=== PATIENT | male | born 1930 | race Caucasian/White ===

== ENCOUNTER → 2016-08-10 | Outpatient (CLI) | payer MEDICARE, BC | END | disposition home or self-care (01) | LOC: MW.LAB 11:41 | DX: A43.0 Pulmonary nocardiosis (principal) ==

== ENCOUNTER → 2016-08-21 | Outpatient (CLI) | payer MEDICARE, BC ==
--- NOTE | 2016-08-21 16:34 | CR ---
EXAMINATION: Two-view chest (PA and Lateral views). HISTORY: COPD. FINDINGS: The trachea is midline. The cardiomediastinal silhouette is within normal limits. No pulmonary infil trates, effusions or pneumothorax. There is moderate scarring bilaterally, most prominent within the lung apices. There is stable nodularity also noted. Osseous structures appear osteopenic. IMPRESSION: Chronic interstitial changes and nodular scarring without an acute cardiopulmonary finding identifie d.
== END | disposition home or self-care (01) ==
LOC: MW.CHIM 15:56
PROVIDERS: ATTEND Internal Medicine
DX: J44.9 Chronic obstructive pulmonary disease, unspecified (principal); J98.4 Other disorders of lung; B38.0 Acute pulmonary coccidioidomycosis; F17.201 Nicotine dependence, unspecified, in remission
CPT/HCPCS: 71020; 71020-26; 99214

== ENCOUNTER → 2016-09-06 | Outpatient (CLI) | payer MEDICARE, BC | LOC: MW.CHPS 08:00 | DX: L57.0 Actinic keratosis (principal) | CPT/HCPCS: 99202 ==

== ENCOUNTER → 2016-11-06 | Outpatient (CLI) | payer MEDICARE, BC | LOC: MW.CHPS 08:00 | PROVIDERS: ATTEND Physician Assistant | DX: L57.0 Actinic keratosis (principal) | CPT/HCPCS: 17000 ==

== ENCOUNTER 2016-11-21 22:33 | Inpatient (IN) | payer MEDICARE, BC ==
[2016-11-21] MEDS ORDERED: Sodium Chloride 0.9% 2.5 ML Syringe FLUSH PRN (23:06)
[2016-11-21] MEDS ORDERED: Meropenem 1 GM in Sodium Chloride 0.9% 100 ML IV ONE (23:06)
[2016-11-21] MEDS ORDERED: Sodium Chloride 0.9% 10 ML Syringe FLUSH PRN (23:06)
--- NOTE | 2016-11-22 00:34 | EDM.PDOC ---
ED HPI GENERAL MEDICAL PROBLEM - General Chief Complaint: Chest Pain Stated Complaint: HARD TIME WALKING Time Seen by Provider: 11/21/16 23:00 Source of Information: Reports: Patient, Family, Old Records, RN - History of Present Illness INITIAL COMMENTS - FREE TEXT/NARRATIVE: He notes about 24 hour history of rigors, fevers, and severe weakness. He has also had a prominent cough Middle Chest Pain Score (Numeric/FACES): 5 - Related Data Allergies Allergy/AdvReac Type Severity Reaction Status Date / Time cefuroxime axetil Allergy Diarrhea Verified 10/18/15 16:03 [From Ceftin] clindamycin Allergy Other Verified 10/18/15 16:03 Penicillins Allergy Other Verified 10/18/15 16:03 Home Meds: Home Meds Albuterol [Proventil HFA] 6.7 gm INH ONETIME 10/18/15 [History] Fluconazole [Diflucan] 10 mg PO 10/18/15 [History] Montelukast [Singulair] 10 mg PO BEDTIME 10/18/15 [History] Multivitamin [Multivitamins] 1 each PO 10/18/15 [History] Omeprazole [Prilosec] 20 mg PO 10/18/15 [History] Tamsulosin [Flomax] 0.4 mg PO ONETIME 10/18/15 [History] Tiotropium [Spiriva HandiHaler] 18 mcg INH DAILY 10/18/15 [History] Past Medical History HEENT History: Reports: Hard of Hearing, Impaired Vision Cardiovascular History: Reports: None Respiratory History: Reports: Asthma, COPD, Other (See Below) Other Respiratory History: "lung infection" "valley fever"? Gastrointestinal History: Reports: Cholelithiasis, GERD Genitourinary History: Reports: Prostate Disorder Musculoskeletal History: Reports: Arthritis, Fracture Neurological History: Reports: None Psychiatric History: Reports: Depression Endocrine/Metabolic History: Reports: None Hematologic History: Reports: None Immunologic History: Reports: None Oncologic (Cancer) History: Reports: None Dermatologic History: Reports: None - Infectious Disease History Infectious Disease History: Reports: Measles - Past Surgical History Head Surgeries/Procedures: Reports: None GI Surgical History: Reports: Cholecystectomy Musculoskeletal Surgical History: Reports: Shoulder Surgery Social & Family History - Family History Family Medical History: Noncontributory - Tobacco Use Smoking Status *Q: Former Smoker Packs/Tins Daily: 30 Used Tobacco, but Quit: Yes Month Tobacco Last Used: 30 yrs ago - Caffeine Use Caffeine Use: Reports: Coffee - Alcohol Use Days Per Week of Alcohol Use: 1 Number of Drinks Per Day: 1 Total Drinks Per Week: 1 - Recreational Drug Use Recreational Drug Use: No ED ROS GENERAL - Review of Systems Review Of Systems: See Below Constitutional: Reports: Fever, Chills HEENT: Denies: Dental Pain Respiratory: Reports: Shortness of Breath, Cough, Sputum Cardiovascular: Reports: Chest Pain (mild anterior chest heaviness) Endocrine: Reports: Fatigue GI/Abdominal: Denies: Abdominal Pain, Black Stool, Bloody Stool, Hematemesis, Hematochezia, Melena, Vomiting : Reports: Dysuria (mild) Musculoskeletal: Denies: Neck Pain Skin: Denies: Cyanosis, Jaundice, Rash Neurological: Denies: Confusion, Seizure ED EXAM, GENERAL - Physical Exam Exam: See Below General Appearance: Alert, No Apparent Distress Throat/Mouth: Normal Inspection Head: Atraumatic Neck: Supple Respiratory/Chest: No Respiratory Distress, Other (coarse breath sounds diffusely) Cardiovascular: Regular Rate, Rhythm GI/Abdominal: Soft, Non-Tender (Male) Exam: Normal Inspection Rectal (Males) Exam: Deferred Neurological: Alert, Oriented Psychiatric: Normal Mood Course - Vital Signs Last Recorded V/S: Last Vital Signs Temp 98.8 F 11/21/16 22:47 Pulse 89 11/21/16 23:53 Resp 16 11/21/16 23:53 BP 104/45 L 11/21/16 23:53 Pulse Ox 95 11/21/16 23:53 - Orders/Labs/Meds Orders: Active Orders 24 hr Category Date Time Status CXR [Chest 2V] [CR] Stat Exams 11/21/16 23:06 Taken CULTURE BLOOD [BC] Stat Lab 11/21/16 23:22 Received CULTURE BLOOD [BC] Stat Lab 11/21/16 23:26 Received CULTURE URINE [RM] Stat Lab 11/21/16 23:12 Received Sodium Chloride 0.9% [Saline Flush] Med 11/21/16 23:06 Active 10 ml FLUSH ASDIRECTED PRN Sodium Chloride 0.9% [Saline Flush] Med 11/21/16 23:06 Active 2.5 ml FLUSH ASDIRECTED PRN Blood Culture x2 Reflex Set [OM.PC] Stat Ot 11/21/16 23:04 Ordered Saline Lock Insert [OM.PC] Stat Ot 11/21/16 23:04 Ordered Medication Orders Sodium Chloride (Saline Flush) 10 ml FLUSH ASDIRECTED PRN PRN Reason: Keep Vein Open Sodium Chloride (Saline Flush) 2.5 ml FLUSH ASDIRECTED PRN PRN Reason: Keep Vein Open Labs: Laboratory Tests 11/21/16 11/21/16 11/21/16 Range/Units 22:47 22:47 22:47 WBC 16.21 H (4.0-11.0) K/uL RBC 4.25 L (4.50-5.90) M/uL Hgb 12.5 L (13.0-17.0) g/dL Hct 38.2 (38.0-50.0) % MCV 89.9 (80.0-98.0) fL MCH 29.4 (27.0-32.0) pg MCHC 32.7 (31.0-37.0) g/dL RDW Std Deviation 49.1 (28.0-62.0) fl RDW Coeff of Keaton 15 (11.0-15.0) % Plt Count 252 (150-400) K/uL MPV 8.90 (7.40-12.00) fL Neut % (Auto) 84.2 H (48.0-80.0) % Lymph % (Auto) 6.8 L (16.0-40.0) % [place] % (Auto) 8.8 (0.0-15.0) % Eos % (Auto) 0.0 (0.0-7.0) % Baso % (Auto) 0.2 (0.0-1.5) % Neut # (Auto) 13.7 H (1.4-5.7) K/uL Lymph # (Auto) 1.1 (0.6-2.4) K/uL [place] # (Auto) 1.4 H (0.0-0.8) K/uL Eos # (Auto) 0.0 (0.0-0.7) K/uL Baso # (Auto) 0.0 (0.0-0.1) K/uL Nucleated RBC % 0.0 /100WBC Nucleated RBCs # 0 K/uL Lactate 1.1 (0.20-2.00) mmol/L Sodium 136 (136-146) mmol/L Potassium 4.0 (3.5-5.1) mmol/L Chloride 105 (98-110) mmol/L Carbon Dioxide 19 L (21-31) mmol/L BUN 24 H (6.0-23.0) mg/dL Creatinine 1.3 (0.6-1.5) mg/dL Est Cr Clr Drug Dosing 43.42 mL/min Estimated GFR (MDRD) 52.6 ml/min Glucose 125 H (60-110) mg/dL Calcium 9.4 (8.8-10.8) mg/dL Magnesium 1.9 (1.5-2.3) mEq/L Total Bilirubin 1.0 (0.1-1.5) mg/dL AST 20 (5-40) IU/L ALT 12 (8-54) IU/L Alkaline Phosphatase 76 (40-150) Troponin I (0.0-0.29) NG/ML Total Protein 8.0 (6.0-8.0) g/dL Albumin 4.3 (3.4-4.8) g/dL Globulin 3.7 H (2.0-3.5) g/dL Albumin/Globulin Ratio 1.2 L (1.3-2.8) Urine Color Urine Appearance Urine pH (5.0-8.0) Ur Specific [place] (1.001-1.035) Urine Protein (NEGATIVE) mg/dL Urine Glucose (UA) (NEGATIVE) mg/dL Urine Ketones (NEGATIVE) mg/dL Urine Occult Blood (NEGATIVE) Urine Nitrite (NEGATIVE) Urine Bilirubin (NEGATIVE) Urine Urobilinogen (<2.0) EU/dL Ur Leukocyte Esterase (NEGATIVE) Urine RBC (0-2/HPF) Urine WBC (0-5/HPF) Ur Epithelial Cells (NONE-FEW) Urine Bacteria (NEGATIVE) 11/21/16 11/21/16 Range/Units 22:47 23:12 WBC (4.0-11.0) K/uL RBC (4.50-5.90) M/uL Hgb (13.0-17.0) g/dL Hct (38.0-50.0) % MCV (80.0-98.0) fL MCH (27.0-32.0) pg MCHC (31.0-37.0) g/dL RDW Std Deviation (28.0-62.0) fl RDW Coeff of [place] (11.0-15.0) % Plt Count (150-400) K/uL MPV (7.40-12.00) fL Neut % (Auto) (48.0-80.0) % Lymph % (Auto) (16.0-40.0) % [place] % (Auto) (0.0-15.0) % Eos % (Auto) (0.0-7.0) % Baso % (Auto) (0.0-1.5) % Neut # (Auto) (1.4-5.7) K/uL Lymph # (Auto) (0.6-2.4) K/uL [place] # (Auto) (0.0-0.8) K/uL Eos # (Auto) (0.0-0.7) K/uL Baso # (Auto) (0.0-0.1) K/uL Nucleated RBC % /100WBC Nucleated RBCs # K/uL Lactate (0.20-2.00) mmol/L Sodium (136-146) mmol/L Potassium (3.5-5.1) mmol/L Chloride (98-110) mmol/L Carbon Dioxide (21-31) mmol/L BUN (6.0-23.0) mg/dL Creatinine (0.6-1.5) mg/dL Est Cr Clr Drug Dosing mL/min Estimated GFR (MDRD) ml/min Glucose (60-110) mg/dL Calcium (8.8-10.8) mg/dL Magnesium (1.5-2.3) mEq/L Total Bilirubin (0.1-1.5) mg/dL AST (5-40) IU/L ALT (8-54) IU/L Alkaline Phosphatase (40-150) Troponin I < 0.10 (0.0-0.29) NG/ML Total Protein (6.0-8.0) g/dL Albumin (3.4-4.8) g/dL Globulin (2.0-3.5) g/dL Albumin/Globulin Ratio (1.3-2.8) Urine Color YELLOW Urine Appearance CLEAR Urine pH 6.0 (5.0-8.0) Ur Specific [place] 1.015 (1.001-1.035) Urine Protein TRACE (NEGATIVE) mg/dL Urine Glucose (UA) NEGATIVE (NEGATIVE) mg/dL Urine Ketones NEGATIVE (NEGATIVE) mg/dL Urine Occult Blood TRACE-INTACT (NEGATIVE) Urine Nitrite NEGATIVE (NEGATIVE) Urine Bilirubin NEGATIVE (NEGATIVE) Urine Urobilinogen 0.2 (<2.0) EU/dL Ur Leukocyte Esterase TRACE (NEGATIVE) Urine RBC 2-3 (0-2/HPF) Urine WBC 2-3 (0-5/HPF) Ur Epithelial Cells OCCASIONAL (NONE-FEW) Urine Bacteria 3+ H (NEGATIVE) Meds: Medications Generic Name Dose Route Start Last Admin Trade Name Freq PRN Reason Stop Dose Admin Sodium Chloride 10 ml 11/21/16 23:06 Saline Flush FLUSH ASDIRECTED PRN Keep Vein Open Sodium Chloride 2.5 ml 11/21/16 23:06 Saline Flush FLUSH ASDIRECTED PRN Keep Vein Open Discontinued Medications Generic Name Dose Route Start Last Admin Trade Name Freq PRN Reason Stop Dose Admin Meropenem 1 gm/ Sodium 100 mls @ 200 mls/hr 11/21/16 23:06 11/21/16 23:48 Chloride IV 11/21/16 23:35 200 mls/hr ONETIME ONE Administration Departure - Departure Time of Disposition: 00:35 Disposition: Admitted As Inpatient 68 Condition: fair Clinical Impression: Sepsis Qualifiers: Sepsis type: sepsis due to unspecified organism Qualified Code(s): A41.9 - Sepsis, unspecified organism Pneumonia Qualifiers: Pneumonia type: due to unspecified organism Laterality: left Lung location: lower lobe of lung Qualified Code(s): J18.1 - Lobar pneumonia, unspecified organism - Discharge Information Forms: ED Department Discharge Additional Instructions: I discussed hospital admission with patient he desires code level I - My Orders Last 24 Hours: My Active Orders 11/21/16 23:04 Blood Culture x2 Reflex Set [OM.PC] Stat Saline Lock Insert [OM.PC] Stat 11/21/16 23:06 CXR [Chest 2V] [CR] Stat Sodium Chloride 0.9% [Saline Flush] 10 ml FLUSH ASDIRECTED PRN Sodium Chloride 0.9% [Saline Flush] 2.5 ml FLUSH ASDIRECTED PRN 11/21/16 23:12 CULTURE URINE [RM] Stat 11/21/16 23:22 CULTURE BLOOD [BC] Stat 11/21/16 23:26 CULTURE BLOOD [BC] Stat - Assessment/Plan Last 24 Hours: My Active Orders 11/21/16 23:04 Blood Culture x2 Reflex Set [OM.PC] Stat Saline Lock Insert [OM.PC] Stat 11/21/16 23:06 CXR [Chest 2V] [CR] Stat Sodium Chloride 0.9% [Saline Flush] 10 ml FLUSH ASDIRECTED PRN Sodium Chloride 0.9% [Saline Flush] 2.5 ml FLUSH ASDIRECTED PRN 11/21/16 23:12 CULTURE URINE [RM] Stat 11/21/16 23:22 CULTURE BLOOD [BC] Stat 11/21/16 23:26 CULTURE BLOOD [BC] Stat
[2016-11-22] MEDS ORDERED: Bisacodyl 5 MG Tab PO PRN (00:38)
[2016-11-22] MEDS ORDERED: Ondansetron 4 MG Tab.DIS PO PRN (00:38)
[2016-11-22] MEDS ORDERED: Levofloxacin/Dextrose 5%-Water 750 MG in Premix Bag 1 BAG IV SCH (00:45)
[2016-11-22] MEDS ORDERED: Sodium Chloride 0.9% 1,000 ML IV SCH (00:45)
[2016-11-22] MEDS: Albuterol/Ipratropium 3.0-0.5 MG/3 ML Neb Soln NEB SCH ×6 (01:43→23:52)
[2016-11-22 05:37] LABS: CHLORIDE,CL 109 mmol/L (98-110); SODIUM,NA 139 mmol/L (136-146)
[2016-11-22] MEDS ORDERED: Meropenem 1 GM in Sodium Chloride 0.9% 100 ML IV SCH ×2 (08:00→09:05)
--- NOTE | 2016-11-22 08:05 | PCM.HP ---
H&P History of Present Illness - General Date of Service: 11/22/16 Admit Problem/Dx: Admission Diagnosis/Problem Admission Diagnosis/Problem Pneumonia Source of Information: Patient History Limitations: Reports: No Limitations - History of Present Illness Initial Comments - Free Text/Narative: This 86 year old male with pmh of emphysema and pulmonary nodules presented to the ED with concerns of generalized weakness and malaise. He reports he was in [place] yesterday and suddenly felt like he couldn't walk due to weakness of even stand. He had his son drive him back to [place] where he presented to the ED. He reports not feeling well the last 2-3 days, with increased cough fatigue and malaise. He reports coughing up clear phlegm. No rhinitis, fevers, sore throat, sinus congestion. No chest pain, palpitations. Slight increase in normal dyspnea. No abdominal pain, no black or bloody BMs, no urinary symptoms. He reports in March 2016 he was sent to [place] for lung biopsy on L side. Subsequently he developed a pneumothorax and needed a chest tube. He reports biopsy was negative. Will obtain records. In the ED leukocytosis noted, 16,210, hgb 12.5 BUN 24, Cr 1.3 UA revealed +3 bacteria, -nitrite, WBC 2-3 and trace leukocyte esterase. He was slightly tachycardic, no hypoxia noted. CXR revealed LLL opacity, with questionable mass , and emphysema along with old/unchanged R sided pulmonary nodules. BC and UC obtained. He was treated with Levaquin and Meropenem. PCP, Dr Chiu. Middle Chest Pain Score (Numeric/FACES): 0 - Related Data Allergies/Adverse Reactions: Allergies Allergy/AdvReac Type Severity Reaction Status Date / Time cefuroxime axetil Allergy Diarrhea Verified 10/18/15 16:03 [From Ceftin] clindamycin Allergy Other Verified 10/18/15 16:03 Penicillins Allergy Other Verified 10/18/15 16:03 Home Medications: Home Meds Albuterol [Proventil HFA] 2 inh INH Q4H PRN 10/18/15 [History] Montelukast [Singulair] 10 mg PO BEDTIME 10/18/15 [History] Multivitamin [Multivitamins] 1 each PO DAILY 10/18/15 [History] Omeprazole [Prilosec] 20 mg PO ACDINNER 10/18/15 [History] Albuterol Sulfate 2.5 mg IH BID 11/22/16 [History] Naproxen Sodium [Aleve] 220 mg PO BEDTIME 11/22/16 [History] Potassium Gluconate 99 mg PO DAILY 11/22/16 [History] Tiotropium Br/Olodaterol HCl [Stiolto Respimat Inhal [place]] 2 inh IH DAILY 11/22 [History] Past Medical History HEENT History: Reports: Hard of Hearing, Impaired Vision Cardiovascular History: Reports: None. Denies: Blood Clots/VTE/DVT, CAD, Heart Failure, High Cholesterol, Hypertension, Stents Respiratory History: Reports: Asthma, COPD, Pneumothorax (Mar 2016 post lung biopsy), Other (See Below) Other Respiratory History: "lung infection" "valley fever"? Gastrointestinal History: Reports: Cholelithiasis, GERD Genitourinary History: Reports: Prostate Disorder Musculoskeletal History: Reports: Arthritis, Fracture Neurological History: Reports: None Psychiatric History: Reports: Depression Endocrine/Metabolic History: Reports: None. Denies: Diabetes, Type II, Hypothyroidism Hematologic History: Reports: None Immunologic History: Reports: None Oncologic (Cancer) History: Reports: None Dermatologic History: Reports: None - Infectious Disease History Infectious Disease History: Reports: Measles - Past Surgical History Head Surgeries/Procedures: Reports: None GI Surgical History: Reports: Cholecystectomy Musculoskeletal Surgical History: Reports: Shoulder Surgery Social & Family History - Family History Family Medical History: Noncontributory - Tobacco Use Smoking Status *Q: Former Smoker Used Tobacco, but Quit: Yes Month Tobacco Last Used: 30 yrs ago - Caffeine Use Caffeine Use: Reports: Coffee - Alcohol Use Days Per Week of Alcohol Use: 1 Number of Drinks Per Day: 1 Total Drinks Per Week: 1 - Recreational Drug Use Recreational Drug Use: No - Living Situation & Occupation Living situation: Reports: Occupation: Retired H&P Review of Systems - Review of Systems: Review Of Systems: See Below General: Reports: Malaise, Weakness, Fatigue HEENT: Denies: Ear Pain, Headaches, Sinus Congestion, Sore Throat, Vertigo, Visual Changes Pulmonary: Reports: Shortness of Breath (slightly increased from baseline), Cough, Sputum. Denies: Wheezing Cardiovascular: Reports: No Symptoms. Denies: Chest Pain, Palpitations, Dyspnea on Exertion, Edema Gastrointestinal: Reports: No Symptoms. Denies: Abdominal Pain, Black Stool, Bloody Stool, Constipation, Diarrhea, Nausea, Vomiting Genitourinary: Reports: No Symptoms. Denies: Dysuria, Frequency, Burning Musculoskeletal: Reports: No Symptoms. Denies: Neck Pain, Back Pain Skin: Reports: No Symptoms Psychiatric: Reports: No Symptoms Neurological: Reports: No Symptoms. Denies: Confusion Hematologic/Lymphatic: Reports: No Symptoms Immunologic: Reports: No Symptoms Exam - Exam Exam: See Below - Vital Signs Vital Signs: Last Vital Signs Temp 98.7 F 11/22/16 01:15 Pulse 84 11/22/16 01:15 Resp 18 11/22/16 01:15 BP 129/60 11/22/16 01:15 Pulse Ox 94 L 11/22/16 01:15 Weight: 72 kg - Exam Quality Assessment: DVT Prophylaxis. No: Supplemental Oxygen General: Alert, Oriented, Cooperative HEENT: Conjunctiva Clear, EACs Clear, EOMI, Hearing Intact (hearing aids in place), Mucosa Moist & [place], Nares Patent, Posterior Pharynx Clear Neck: Supple, Trachea Midline. No: JVD Lungs: Normal Respiratory Effort, Crackles (L basilar) Cardiovascular: Regular Rate, Regular Rhythm, Normal S1, Normal S2. No: Tachycardia, Systolic Murmur Abdomen: Normal Bowel Sounds, Soft Extremities: Normal Inspection, Normal Pulses. No: Calf Tenderness, Edema Skin: Warm, Dry, Intact Neurological: Cranial Nerves Intact Neuro Extensive - Mental Status: Alert, Oriented x3, Normal Mood/Affect, Normal Cognition Psychiatric: Alert, Normal Affect, Normal Mood - Patient Data Lab Results last 24 hrs: Laboratory Results - last 24 hr 11/22/16 11/22/16 Range/Units 04:57 04:57 WBC 11.01 H (4.0-11.0) K/uL RBC 3.62 L (4.50-5.90) M/uL Hgb 10.7 L (13.0-17.0) g/dL Hct 32.5 L (38.0-50.0) % MCV 89.8 (80.0-98.0) fL MCH 29.6 (27.0-32.0) pg MCHC 32.9 (31.0-37.0) g/dL RDW Std Deviation 48.9 (28.0-62.0) fl RDW Coeff of Keaton 15 (11.0-15.0) % Plt Count 197 (150-400) K/uL MPV 8.50 (7.40-12.00) fL Neut % (Auto) 79.4 (48.0-80.0) % Lymph % (Auto) 10.1 L (16.0-40.0) % [place] % (Auto) 10.1 (0.0-15.0) % Eos % (Auto) 0.1 (0.0-7.0) % Baso % (Auto) 0.3 (0.0-1.5) % Neut # (Auto) 8.8 H (1.4-5.7) K/uL Lymph # (Auto) 1.1 (0.6-2.4) K/uL [place] # (Auto) 1.1 H (0.0-0.8) K/uL Eos # (Auto) 0.0 (0.0-0.7) K/uL Baso # (Auto) 0.0 (0.0-0.1) K/uL Nucleated RBC % 0.0 /100WBC Nucleated RBCs # 0 K/uL Sodium 139 (136-146) mmol/L Potassium 3.7 (3.5-5.1) mmol/L Chloride 109 (98-110) mmol/L Carbon Dioxide 19 L (21-31) mmol/L BUN 23 (6.0-23.0) mg/dL Creatinine 1.1 (0.6-1.5) mg/dL Est Cr Clr Drug Dosing 50.91 mL/min Estimated GFR (MDRD) > 60.0 ml/min Glucose 105 (60-110) mg/dL Calcium 8.3 L (8.8-10.8) mg/dL Total Bilirubin 1.1 (0.1-1.5) mg/dL AST 16 (5-40) IU/L ALT 10 (8-54) IU/L Alkaline Phosphatase 63 (40-150) Total Protein 6.2 (6.0-8.0) g/dL Albumin 3.6 (3.4-4.8) g/dL Globulin 2.6 (2.0-3.5) g/dL Albumin/Globulin Ratio 1.4 (1.3-2.8) Result Diagrams: 11/22/16 04:57 11/22/16 04:57 *Q Meaningful Use (ADM) - VTE *Q VTE Criteria *Q: - VTE Risk Assess *Q Each Risk Factor Represents 1 Point: Serious Lung Disease Including Pneumonia, Less than 1 Month, Abnormal Pulmonary Function (COPD) Total Score 1 Point Risk Factors: 2 Each Risk Factor Represents 2 Points: None Total Score 2 Point Risk Factors: 0 Each Risk Factor Represents 3 Points: Age 75 Years or Greater Total Score 3 Point Risk Factors: 3 Each Risk Factor Represents 5 Points: None Total Score 5 Point Risk Factors: 0 Venous Thromboembolism Risk Factor Score *Q: 5 - Stroke *Q Stroke Criteria *Q: - AMI *Q AMI Criteria *Q: - Problem List (1) Pneumonia SNOMED Code(s): 963249028 ICD Code: J18.9 - PNEUMONIA, UNSPECIFIED ORGANISM Status: Acute Current Visit: Yes Qualifiers: Pneumonia type: due to unspecified organism Laterality: left Lung location: lower lobe of lung Qualified Code(s): J18.1 - Lobar pneumonia, unspecified organism (2) UTI (urinary tract infection) SNOMED Code(s): 61409207 ICD Code: N39.0 - URINARY TRACT INFECTION, SITE NOT SPECIFIED Status: Acute Current Visit: No Qualifiers: Urinary tract infection type: acute cystitis Hematuria presence: without hematuria Qualified Code(s): N30.00 - Acute cystitis without hematuria (3) Emphysema of lung SNOMED Code(s): 90900040 ICD Code: J43.9 - EMPHYSEMA, UNSPECIFIED Status: Chronic Current Visit: Yes (4) GERD (gastroesophageal reflux disease) SNOMED Code(s): 049943787 ICD Code: K21.9 - GASTRO-ESOPHAGEAL REFLUX DISEASE WITHOUT ESOPHAGITIS Status: Chronic Current Visit: Yes Qualifiers: Esophagitis presence: esophagitis presence not specified Qualified Code(s) : K21.9 - Gastro-esophageal reflux disease without esophagitis Problem List Initiated/Reviewed/Updated: Yes Orders Last 24hrs: Active Orders 24 hr Category Date Time Status RT Aerosol Therapy [RC] ASDIRECTED Care 11/22/16 00:44 Active Telemetry Monitoring [Cardiac Monitoring] [RC] . Care 11/22/16 04:19 Active DIRECTED Albuterol/Ipratropium [DuoNeb 3.0-0.5 MG/3 ML] Med 11/22/16 00:45 Active 3 ml NEB Q6H Multivitamin [Multivitamins] Med 11/22/16 09:00 Active 1 each PO DAILY Omeprazole Med 11/22/16 09:00 Active 20 mg PO DAILY Medication Orders Acetaminophen (Tylenol) 650 mg PO Q4H PRN PRN Reason: Pain (Mild 1-3)/fever Albuterol/Ipratropium (Duoneb 3.0-0.5 Mg/3 Ml) 3 ml NEB Q6H [facility] Last Admin: 11/22/16 01:43 Dose: 3 ml Bisacodyl (Dulcolax) 5 mg PO DAILY PRN PRN Reason: Constipation Heparin Sodium (Porcine) (Heparin Sodium) 5,000 units SUBCUT Q8H ADAM Levofloxacin/Dextrose 750 mg/ (Premix) 150 mls @ 100 mls/hr IV Q48H [facility] Last Admin: 11/22/16 01:43 Dose: 100 mls/hr Meropenem 1 gm/ Sodium (Chloride) 100 mls @ 200 mls/hr IV Q8H ADAM Sodium Chloride (Normal Saline) 1,000 mls @ 125 mls/hr IV ASDIRECTED [facility] Last Admin: 11/22/16 01:43 Dose: 125 mls/hr Non-Formulary Medication (Multivitamin [Multivitamins]) 1 each PO DAILY [facility] Omeprazole (Omeprazole) 20 mg PO DAILY [facility] Ondansetron HCl (Zofran Odt) 4 mg PO Q4H PRN PRN Reason: nausea, able to take PO Sodium Chloride (Saline Flush) 10 ml FLUSH ASDIRECTED PRN PRN Reason: Keep Vein Open Sodium Chloride (Saline Flush) 2.5 ml FLUSH ASDIRECTED PRN PRN Reason: Keep Vein Open Assessment/Plan Comment:: This 86 year old male admitted with pneumonia and UTI 1. Pneumonia: Will continue Levaquin. Monitor CBC in am. Will obtain chest CT upon recommendations of radiology on CXR to further evaluate pulmonary nodules. Jazmin scheduled. pending. Awaiting records from [place]. 2. UTI: UC pending, continue Levaquin. 3. GERD: Continue Omeprazole 4. Emphysema: Continue Nebs, and home inhalers VTE prophylaxis: Heparin Dispo: 1-2 days pending improvement.
[2016-11-22] MEDS ORDERED: Omeprazole 20 MG Cap.CR PO SCH (09:00)
[2016-11-22] MEDS ORDERED: Non-Formulary Medication 1 Each (Multivitamin [Multivitamins] 1 EACH) PO SCH (09:00)
[2016-11-22] MEDS: Multivitamins with Iron/Calcium/Folic Acid/Minerals Tab PO SCH (09:22)
--- NOTE | 2016-11-22 10:49 | CR ---
EXAM DATE: 11/22/16 PATIENT'S AGE: 86 Patient: NAJMA JIMENEZ Facility: [place], [place] Site . Site : [id number] Study: XRay Chest [id number] 11:35:34 PM Ordering Physician: Lisa Merchant Final Report: INDICATION: Fever TECHNIQUE: Chest 2 views. COMPARISON: August 21, 2016 FINDINGS: Stable cardiomediastinal silhouette. Emphysema. New opacity in the left lower lobe. Volume loss in the right upper lobe with multiple small lucencies in this region. Stable biapical pleural thickening. Round nodular densities in the left upper lobe, the largest measuring 1.5 cm. No effusion or pneumothorax. Diffuse osteopenia with calcification of the anterior longitudinal ligament of the thoracic spine. IMPRESSION: New opacity in the left lower lobe may represent infection. A portion of it has a more rounded appearance and underlying mass cannot be excluded. Consider chest CT for further evaluation of these findings. In addition, there are two nodular densities projecting over the left upper lobe which may represent pulmonary nodules. These appear stable compared to August 21, 2016. Emphysema. Chronic appearing volume loss in the right upper lobe with possible bronchiectasis. Dictated by Mary Ponce MD @ Nov 21 2016 11:39PM (Electronic Signature) Report Signed by Proxy. ANGELA
[2016-11-22] MEDS ORDERED: Albuterol 8 GM Inhaler INH PRN (11:57)
[2016-11-22] MEDS: Sodium Chloride 0.9% 1,000 ML IV SCH ×2 (12:00→21:36)
[2016-11-22] MEDS: STIOLTO INH SCH (14:48)
--- NOTE | 2016-11-22 14:49 | PCM.SN ---
- Free Text/Narrative Note: Reviewed clinic notes of Dr Concepcion and admission for pneumothorax in March 2016. 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 he is followed by both Pulmonology and ID in [place]. Will obtain ID note from October follow up. From this review of notes, it does not appear L lower lobe nodule noted. will wait for CT results and may need to contact his [employer] Operations [employer] Member. Will await further records and CT results.
--- NOTE | 2016-11-22 16:38 | CT ---
EXAMINATION: CT chest without contrast HISTORY: Pneumonia COMPARISON: Chest radiographs dated 11/21/2016 and 08/21/2016 TECHNIQUE: Axial CT images obtained through the chest without contrast. Coronal and sagittal reconst ructions obtained. FINDINGS: There is scarring within the lung apices. Scattered groundglass opacities are noted within the left upper and left lower lobes bilaterally. There are several ill-defined opacities within the left lower lobe measuring approximately 2.9 cm medially and 3.6 cm laterally. There is also a 2 x 1 .2 cm nodular opacity within the left apex. Chronic interstitial changes are noted. Pulmonary emphys raquel is also present. There is bronchiectasis within the right apex. Mediastinal lymph nodes are note d measuring up to 1 cm in the short axis. Thoracic aorta is normal in caliber. The heart is normal i n size without a pericardial effusion. No significant pleural effusion or pneumothorax. No axillary lymphadenopathy. Cholecystectomy. Otherwise the visualized images of the upper abdomen appear normal. IMPRESSION: 1. Several ill-defined pulmonary nodules/masses within the left hemithorax. This could represent inf ectious consolidation, however a neoplastic process is also not excluded without IV contrast. 2. Ill-defined groundglass opacities are also noted within the left hemithorax, likely consistent wi th pneumonia. Follow-up may be beneficial. 3. Borderline mediastinal lymph nodes. 4. Scarring, emphysema, and bronchiectasis noted bilaterally.
[2016-11-22] MEDS: Calcium Carbonate 500 MG Tab.Chew PO PRN ×2 (17:37→20:40)
[2016-11-22] MEDS: Acetaminophen 325 MG Tab PO PRN (20:40)
[2016-11-22] MEDS: Montelukast 10 MG Tab PO SCH (20:40)
[2016-11-22] MEDS: Levofloxacin/Dextrose 5%-Water 750 MG in Premix Bag 1 BAG IV SCH (23:59)
[2016-11-23] MEDS: Acetaminophen 325 MG Tab PO PRN ×2 (04:20→21:45)
[2016-11-23 05:34] LABS: CHLORIDE,CL 112 mmol/L (98-110); SODIUM,NA 139 mmol/L (136-146)
[2016-11-23] MEDS: Albuterol/Ipratropium 3.0-0.5 MG/3 ML Neb Soln NEB SCH ×4 (06:11→23:59)
[2016-11-23] MEDS: STIOLTO INH SCH (06:11)
[2016-11-23] MEDS: Omeprazole 20 MG Cap.CR PO SCH (06:35)
[2016-11-23] MEDS: Multivitamins with Iron/Calcium/Folic Acid/Minerals Tab PO SCH (08:28)
--- NOTE | 2016-11-23 09:03 | PCM.PN ---
- General Info Date of Service: 11/23/16 Admission Dx/Problem (Free Text): Admission Diagnosis/Problem Admission Diagnosis/Problem Pneumonia Subjective Update: Feeling imprved from yesterday and day of admission. Still feels like legs are a little weak when up walking and feels "unsafe" walking by himself. Denies increased SOB, at baseline. No chest pain. Eating and drinking well. Has been up ambulating but feels legs are weak. "I dont want to go home too early, before I'm ready". Functional Status: Reports: pain controlled, tolerating diet, ambulating, urinating - Review of Systems General: Reports: Weakness. Denies: Fever HEENT: Reports: no symptoms. Denies: sinus congestion, sore throat Pulmonary: Reports: cough. Denies: shortness of breath, sputum (white phlegm) Cardiovascular: Reports: No Symptoms. Denies: Chest Pain, Palpitations, Edema Gastrointestinal: Reports: No symptoms. Denies: Abdominal pain, Diarrhea, Nausea, Vomiting Genitourinary: Reports: no symptoms. Denies: dysuria, frequency, burning Musculoskeletal: Reports: no symptoms Skin: Reports: no symptoms Neurological: Reports: No Symptoms Psychiatric: Reports: no symptoms - Patient Data Vitals - most recent: Last Vital Signs Temp 98.4 F 11/23/16 08:00 Pulse 86 11/23/16 08:00 Resp 17 11/23/16 08:00 BP 91/46 L 11/23/16 08:00 Pulse Ox 91 L 11/23/16 08:00 Weight - most recent: 72 kg I&O - last 24 hours: Intake & Output 11/22/16 11/23/16 11/23/16 22:59 06:59 14:59 Intake Total 1600 600 640 Output Total 900 625 Balance 700 -25 640 Lab Results last 24 hrs: Laboratory Results - last 24 hr 11/23/16 11/23/16 Range/Units 05:00 05:00 WBC 5.12 (4.0-11.0) K/uL RBC 3.27 L (4.50-5.90) M/uL Hgb 9.6 L (13.0-17.0) g/dL Hct 29.9 L (38.0-50.0) % MCV 91.4 (80.0-98.0) fL MCH 29.4 (27.0-32.0) pg MCHC 32.1 (31.0-37.0) g/dL RDW Std Deviation 50.6 (28.0-62.0) fl RDW Coeff of [place] 15 (11.0-15.0) % Plt Count 171 (150-400) K/uL MPV 8.20 (7.40-12.00) fL Neut % (Auto) 69.8 (48.0-80.0) % Lymph % (Auto) 18.8 (16.0-40.0) % [place] % (Auto) 9.2 (0.0-15.0) % Eos % (Auto) 1.8 (0.0-7.0) % Baso % (Auto) 0.4 (0.0-1.5) % Neut # (Auto) 3.6 (1.4-5.7) K/uL Lymph # (Auto) 1.0 (0.6-2.4) K/uL [place] # (Auto) 0.5 (0.0-0.8) K/uL Eos # (Auto) 0.1 (0.0-0.7) K/uL Baso # (Auto) 0.0 (0.0-0.1) K/uL Nucleated RBC % 0.0 /100WBC Nucleated RBCs # 0 K/uL Sodium 139 (136-146) mmol/L Potassium 3.9 (3.5-5.1) mmol/L Chloride 112 H (98-110) mmol/L Carbon Dioxide 20 L (21-31) mmol/L BUN 19 (6.0-23.0) mg/dL Creatinine 1.0 (0.6-1.5) mg/dL Est Cr Clr Drug Dosing 56.00 mL/min Estimated GFR (MDRD) > 60.0 ml/min Glucose 90 (60-110) mg/dL Calcium 8.4 L (8.8-10.8) mg/dL [place] Results last 24 hrs: Microbiology 11/22/16 16:30 Gram Stain - Preliminary Sputum - Expectorated Med Orders - Current: Current Medications Acetaminophen (Tylenol) 650 mg PO Q4H PRN PRN Reason: Pain (Mild 1-3)/fever Last Admin: 11/23/16 04:20 Dose: 650 mg Albuterol (Ventolin Hfa) 0 gm INH Q4H PRN PRN Reason: Shortness of Breath Albuterol/Ipratropium (Duoneb 3.0-0.5 Mg/3 Ml) 3 ml NEB Q6H [facility] Last Admin: 11/23/16 06:11 Dose: 3 ml Bisacodyl (Dulcolax) 5 mg PO DAILY PRN PRN Reason: Constipation Calcium Carbonate/Glycine (Tums) 1,000 mg PO Q2HR PRN PRN Reason: Heartburn Last Admin: 11/22/16 20:40 Dose: 1,000 mg Heparin Sodium (Porcine) (Heparin Sodium) 5,000 units SUBCUT Q8H [facility] Levofloxacin/Dextrose 750 mg/ (Premix) 150 mls @ 100 mls/hr IV Q24H [facility] Last Admin: 11/22/16 23:59 Dose: 100 mls/hr Montelukast Sodium (Singulair) 10 mg PO BEDTIME [facility] Last Admin: 11/22/16 20:40 Dose: 10 mg Multivitamins/Minerals (Thera M Plus) 1 tab PO DAILY [facility] Last Admin: 11/23/16 08:28 Dose: 1 tab Omeprazole (Omeprazole) 20 mg PO ACBREAKFAST [facility] Last Admin: 11/23/16 06:35 Dose: 20 mg Ondansetron HCl (Zofran Odt) 4 mg PO Q4H PRN PRN Reason: nausea, able to take PO Last Admin: 11/22/16 20:40 Dose: 4 mg Stiolto 0 each INH DAILYRT [facility] Last Admin: 11/23/16 06:11 Dose: 2 each Sodium Chloride (Saline Flush) 10 ml FLUSH ASDIRECTED PRN PRN Reason: Keep Vein Open Sodium Chloride (Saline Flush) 2.5 ml FLUSH ASDIRECTED PRN PRN Reason: Keep Vein Open Discontinued Medications Meropenem 1 gm/ Sodium (Chloride) 100 mls @ 200 mls/hr IV ONETIME ONE Stop: 11/21/16 23:35 Last Admin: 11/21/16 23:48 Dose: 200 mls/hr Levofloxacin/Dextrose 750 mg/ (Premix) 150 mls @ 100 mls/hr IV Q48H [facility] Last Admin: 11/22/16 01:43 Dose: 100 mls/hr Meropenem 1 gm/ Sodium (Chloride) 100 mls @ 200 mls/hr IV Q8H [facility] Last Admin: 11/22/16 09:20 Dose: Not Given Sodium Chloride (Normal Saline) 1,000 mls @ 125 mls/hr IV ASDIRECTED [facility] Last Admin: 11/22/16 01:43 Dose: 125 mls/hr Meropenem 1 gm/ Sodium (Chloride) 50 mls @ 100 mls/hr IV Q8H [facility] Last Admin: 11/22/16 09:21 Dose: Not Given Meropenem 1 gm/ Sodium (Chloride) 100 mls @ 200 mls/hr IV Q8H [facility] Last Admin: 11/22/16 09:21 Dose: 200 mls/hr Sodium Chloride (Normal Saline) 1,000 mls @ 100 mls/hr IV ASDIRECTED [facility] Last Admin: 11/22/16 21:36 Dose: 100 mls/hr Non-Formulary Medication (Multivitamin [Multivitamins]) 1 each PO DAILY [facility] Omeprazole (Omeprazole) 20 mg PO DAILY [facility] - Exam Quality Assessment: No: supplemental oxygen General: alert, oriented, cooperative Lungs: Normal respiratory effort, Crackles (fine crackle L basilar) Cardiovascular: Regular Rate, Regular Rhythm, Murmurs Abdomen: bowel sounds present, soft, no tenderness, no distension Extremities: no edema, normal pulses Neurological: no new focal deficit Psy/Mental Status: alert, normal affect, normal mood - Problem List & Annotations (1) Pneumonia SNOMED Code(s): 886025439 Code(s): J18.9 - PNEUMONIA, UNSPECIFIED ORGANISM Status: Acute Current Visit: Yes Qualifiers: Pneumonia type: due to unspecified organism Laterality: left Lung location: lower lobe of lung Qualified Code(s): J18.1 - Lobar pneumonia, unspecified organism (2) UTI (urinary tract infection) SNOMED Code(s): 51830094 Code(s): N39.0 - URINARY TRACT INFECTION, SITE NOT SPECIFIED Status: Acute Current Visit: No Qualifiers: Urinary tract infection type: acute cystitis Hematuria presence: without hematuria Qualified Code(s): N30.00 - Acute cystitis without hematuria (3) Emphysema of lung SNOMED Code(s): 62157932 Code(s): J43.9 - EMPHYSEMA, UNSPECIFIED Status: Chronic Current Visit: Yes (4) GERD (gastroesophageal reflux disease) SNOMED Code(s): 306098168 Code(s): K21.9 - GASTRO-ESOPHAGEAL REFLUX DISEASE WITHOUT ESOPHAGITIS Status: Chronic Current Visit: Yes Qualifiers: Esophagitis presence: esophagitis presence not specified Qualified Code(s) : K21.9 - Gastro-esophageal reflux disease without esophagitis - Problem List Review Problem List Initiated/Reviewed/Updated: Yes - My Orders Last 24 Hours: My Active Orders 11/22/16 11:42 Communication Order [RC] PRN 11/22/16 11:57 Albuterol [Ventolin HFA] 0 gm INH Q4H PRN 11/22/16 11:58 Patient's Own Medication [Ptom] 0 each INH DAILYRT 11/22/16 16:30 CULTURE SPUTUM + SMEAR [RM] Routine 11/22/16 21:00 Montelukast [Singulair] 10 mg PO BEDTIME 11/23/16 08:12 Hemoccult [Fecal Occult Blood Collection] [RC] ASDIRECTED Hemoccult [OCCULT BLOOD DIAGNOSTIC] [OP] Routine - Plan Plan:: This 86 year old male admitted with pneumonia and UTI 1. Pneumonia: Will continue Levaquin. Leukocytosis resolved. Chest CT noted per radiologist "several ill defined pulmonary nodules/masses within the left hemothorax, possibly representing infectious consolidation, however neoplastic process is also not excluded, illdefined ground glass opactieies are also noted within the left hemithorax, likely consistent with pneumonia, follow up beneficial. Borderline mediastinal lymph nodes, scarring emphysema and bronchiectasis noted bilaterally." Duonemariam scheduled. BC negative. sputum pending. Reviewed all records from [facility]. We discussed his recent Pulmonology infections and appointments with both Dr. Watt, Pulmonology, and Dr Shultz's, ID. 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 Shultz's recommended this was adequate therapy and recommended no further refills, repeat sputum for Nocardia smear, cultures, and fungal culture was negative for Nocardia and Aspergillus as of August 2016. I called and spoke with Dr. Watt, Pulmonogist, regarding recent CT scan, he requested images and reviewed these. He feels these nodules and ground glass opacities are related to pneumonia. He recommended follow up with Ct without contrast of chest in 6-8 weeks with PCP. 2. UTI: Mixed yahaira 1,000-10,000. continue Levaquin. 3. Generalized Weakness: Will have PT eval and treat. 4. Hgb decrease: May be dilutional for IVFs. Will check hemoccult, patient denies recent bleeding or black or bloody stools. 5. Emphysema: Continue Nebs, and home inhalers 6. GERD: Continue Omeprazole VTE prophylaxis: Heparin Dispo: 1-2 days pending improvement.
[2016-11-23] MEDS ORDERED: Bisacodyl 5 MG Tab PO PRN (15:23)
[2016-11-23] MEDS: Heparin Sodium 5,000 Units/ML Vial SUBCUT SCH (18:24)
[2016-11-23] MEDS: Calcium Carbonate 500 MG Tab.Chew PO PRN (19:55)
[2016-11-23] MEDS: Montelukast 10 MG Tab PO SCH (20:02)
[2016-11-23] MEDS: Carboxymethylcellulose Sodium 0.5% Ophth Soln 0.4 ML UD Box of 30 EYEBOTH PRN (22:02)
[2016-11-23] MEDS: Levofloxacin/Dextrose 5%-Water 750 MG in Premix Bag 1 BAG IV SCH (23:59)
[2016-11-24] MEDS: Heparin Sodium 5,000 Units/ML Vial SUBCUT SCH ×2 (02:03→10:15)
[2016-11-24] MEDS: Acetaminophen 325 MG Tab PO PRN (02:03)
[2016-11-24] MEDS: Carboxymethylcellulose Sodium 0.5% Ophth Soln 0.4 ML UD Box of 30 EYEBOTH PRN ×2 (05:50→10:19)
[2016-11-24] MEDS: Albuterol/Ipratropium 3.0-0.5 MG/3 ML Neb Soln NEB SCH ×2 (05:50→11:36)
[2016-11-24 06:43] LABS: CHLORIDE,CL 109 mmol/L (98-110); SODIUM,NA 140 mmol/L (136-146)
[2016-11-24] MEDS: Omeprazole 20 MG Cap.CR PO SCH (06:44)
[2016-11-24] MEDS: Multivitamins with Iron/Calcium/Folic Acid/Minerals Tab PO SCH (09:01)
--- NOTE | 2016-11-24 12:14 | PCM.DCSUM1 ---
Discharge Summary - Discharge Data Discharge Date: 11/24/16 Discharge Disposition: Home, Self-Care 01 Condition: Good - Patient Summary/Data Consults: Consultations 11/23/16 08:53 Consult to Physical Therapy [PT Evaluation and Treatment] [CONS] Routine Hospital Course: Admission Diagnosis Community Acquired Pneumonia Hospital Course: This 86 year old male with pmh of emphysema and pulmonary nodules presented to the ED with concerns of generalized weakness and malaise. Laboratory values were significant for WBC of 16,210, hgb 12.5 BUN 24, Cr 1.3. He was slightly tachycardic, no hypoxia noted. CXR revealed LLL opacity, with questionable mass, and emphysema along with old/unchanged R sided pulmonary nodules. Sputum cultures grew out normal respiratory yahaira. Chest CT noted per radiologist "several ill defined pulmonary nodules/masses within the left hemothorax, possibly representing infectious consolidation, however neoplastic process is also not excluded, illdefined ground glass opactieies are also noted within the left hemithorax, likely consistent with pneumonia, follow up beneficial. Borderline mediastinal lymph nodes, scarring emphysema and bronchiectasis noted bilaterally. He has a history of Apergillus and Nocardia pneumoina but he finished his 12 week course of Voriconazol and 6 months of bactrim as of 2016. Dr. Watt his supervisor shuttle veneering review his CT scan and thought the nodules were likely related to pneumonia. He was treated with Levaquin with improvement in his leukocytosis and malaise. Today he is requesting discharge. He was discharged home to complete five more days of Levaquin. He is to follow up with Dr. Concepcion on 11/30/16. Patient was informed of the recommendation of repeat CT without contrast of chest in 6-8 weeks. - Discharge Plan Prescriptions/Med Rec: Levofloxacin [Levaquin] 750 mg PO DAILY #5 tablet Home Medications: Home Meds Albuterol [Proventil HFA] 2 inh INH Q4H PRN 10/18/15 [History] Montelukast [Singulair] 10 mg PO BEDTIME 10/18/15 [History] Multivitamin [Multivitamins] 1 each PO DAILY 10/18/15 [History] Omeprazole [Prilosec] 20 mg PO ACDINNER 10/18/15 [History] Albuterol Sulfate 2.5 mg IH BID 11/22/16 [History] Naproxen Sodium [Aleve] 220 mg PO BEDTIME 11/22/16 [History] Potassium Gluconate 99 mg PO DAILY 11/22/16 [History] Tiotropium Br/Olodaterol HCl [Stiolto Respimat Inhal [place]] 2 inh IH DAILY 11/22 [History] Levofloxacin [Levaquin] 750 mg PO DAILY #5 tablet 11/24/16 [Rx] Patient Handouts: Urinary Tract Infection, Adult, [id number], Levofloxacin tablets, Community-Acquired Pneumonia, Adult, [id number] Referrals: Ramy Concepcion MD [Primary Care Provider] - 11/30/16 9:00 am - Patient Data Vitals - Most Recent: Last Vital Signs Temp 37.4 C 11/24/16 08:00 Pulse 94 11/24/16 08:00 Resp 16 11/24/16 08:00 BP 112/54 L 11/24/16 08:00 Pulse Ox 92 L 11/24/16 08:00 Weight - Most Recent: 72 kg I&O - Last 24 hours: Intake & Output 11/23/16 11/24/16 11/24/16 22:59 06:59 14:59 Intake Total 880 840 Output Total 850 940 Balance 30 -100 Lab Results - Last 24 hrs: Laboratory Results - last 24 hr 11/24/16 11/24/16 Range/Units 05:35 05:35 WBC 5.21 (4.0-11.0) K/uL RBC 3.44 L (4.50-5.90) M/uL Hgb 10.1 L (13.0-17.0) g/dL Hct 30.9 L (38.0-50.0) % MCV 89.8 (80.0-98.0) fL MCH 29.4 (27.0-32.0) pg MCHC 32.7 (31.0-37.0) g/dL RDW Std Deviation 49.3 (28.0-62.0) fl RDW Coeff of [place] 15 (11.0-15.0) % Plt Count 221 (150-400) K/uL MPV 8.60 (7.40-12.00) fL Neut % (Auto) 65.0 (48.0-80.0) % Lymph % (Auto) 20.2 (16.0-40.0) % [place] % (Auto) 11.1 (0.0-15.0) % Eos % (Auto) 3.3 (0.0-7.0) % Baso % (Auto) 0.4 (0.0-1.5) % Neut # (Auto) 3.4 (1.4-5.7) K/uL Lymph # (Auto) 1.1 (0.6-2.4) K/uL [place] # (Auto) 0.6 (0.0-0.8) K/uL Eos # (Auto) 0.2 (0.0-0.7) K/uL Baso # (Auto) 0.0 (0.0-0.1) K/uL Nucleated RBC % 0.0 /100WBC Nucleated RBCs # 0 K/uL Sodium 140 (136-146) mmol/L Potassium 3.7 (3.5-5.1) mmol/L Chloride 109 (98-110) mmol/L Carbon Dioxide 22 (21-31) mmol/L BUN 17 (6.0-23.0) mg/dL Creatinine 1.0 (0.6-1.5) mg/dL Est Cr Clr Drug Dosing 56.00 mL/min Estimated GFR (MDRD) > 60.0 ml/min Glucose 99 (60-110) mg/dL Calcium 8.8 (8.8-10.8) mg/dL ETHAN Results - Last 24 hrs: Microbiology 11/24/16 09:15 Stool Occult Blood (ETHAN) - Final Stool / Feces - Stool, Formed NEGATIVE OCCULT BLOOD 11/22/16 16:30 Gram Stain - Final Sputum - Expectorated Sputum Culture - Final Normal Respiratory Yahaira Med Orders - Current: Current Medications Acetaminophen (Tylenol) 650 mg PO Q4H PRN PRN Reason: Pain (Mild 1-3)/fever Last Admin: 11/24/16 02:03 Dose: 650 mg Albuterol (Ventolin Hfa) 0 gm INH Q4H PRN PRN Reason: Shortness of Breath Albuterol/Ipratropium (Duoneb 3.0-0.5 Mg/3 Ml) 3 ml NEB Q6H [facility] Last Admin: 11/24/16 11:36 Dose: 3 ml Artificial Tears (Refresh Plus 0.5%) 1 each EYEBOTH ASDIRECTED PRN PRN Reason: Dry Eyes Last Admin: 11/24/16 10:19 Dose: 1 drop Bisacodyl (Dulcolax) 5 mg PO BID PRN PRN Reason: Constipation Last Admin: 11/23/16 20:04 Dose: 5 mg Calcium Carbonate/Glycine (Tums) 1,000 mg PO Q2HR PRN PRN Reason: Heartburn Last Admin: 11/23/16 19:55 Dose: 1,000 mg Heparin Sodium (Porcine) (Heparin Sodium) 5,000 units SUBCUT Q8H [facility] Last Admin: 11/24/16 10:15 Dose: 5,000 units Levofloxacin/Dextrose 750 mg/ (Premix) 150 mls @ 100 mls/hr IV Q24H [facility] Last Admin: 11/23/16 23:59 Dose: 100 mls/hr Montelukast Sodium (Singulair) 10 mg PO BEDTIME [facility] Last Admin: 11/23/16 20:02 Dose: 10 mg Multivitamins/Minerals (Thera M Plus) 1 tab PO DAILY [facility] Last Admin: 11/24/16 09:01 Dose: 1 tab Omeprazole (Omeprazole) 20 mg PO ACBREAKFAST [facility] Last Admin: 11/24/16 06:44 Dose: 20 mg Ondansetron HCl (Zofran Odt) 4 mg PO Q4H PRN PRN Reason: nausea, able to take PO Last Admin: 11/22/16 20:40 Dose: 4 mg Stiolto 0 each INH DAILYRT [facility] Last Admin: 11/23/16 06:11 Dose: 2 each Sodium Chloride (Saline Flush) 10 ml FLUSH ASDIRECTED PRN PRN Reason: Keep Vein Open Sodium Chloride (Saline Flush) 2.5 ml FLUSH ASDIRECTED PRN PRN Reason: Keep Vein Open Discontinued Medications Albuterol/Ipratropium (Duoneb 3.0-0.5 Mg/3 Ml) 3 ml NEB Q6H [facility] Last Admin: 11/23/16 06:11 Dose: 3 ml Bisacodyl (Dulcolax) 5 mg PO DAILY PRN PRN Reason: Constipation Last Admin: 11/23/16 10:35 Dose: 5 mg Meropenem 1 gm/ Sodium (Chloride) 100 mls @ 200 mls/hr IV ONETIME ONE Stop: 11/21/16 23:35 Last Admin: 11/21/16 23:48 Dose: 200 mls/hr Levofloxacin/Dextrose 750 mg/ (Premix) 150 mls @ 100 mls/hr IV Q48H [facility] Last Admin: 11/22/16 01:43 Dose: 100 mls/hr Meropenem 1 gm/ Sodium (Chloride) 100 mls @ 200 mls/hr IV Q8H [facility] Last Admin: 11/22/16 09:20 Dose: Not Given Sodium Chloride (Normal Saline) 1,000 mls @ 125 mls/hr IV ASDIRECTED [facility] Last Admin: 11/22/16 01:43 Dose: 125 mls/hr Meropenem 1 gm/ Sodium (Chloride) 50 mls @ 100 mls/hr IV Q8H [facility] Last Admin: 11/22/16 09:21 Dose: Not Given Meropenem 1 gm/ Sodium (Chloride) 100 mls @ 200 mls/hr IV Q8H [facility] Last Admin: 11/22/16 09:21 Dose: 200 mls/hr Sodium Chloride (Normal Saline) 1,000 mls @ 100 mls/hr IV ASDIRECTED [facility] Last Admin: 11/22/16 21:36 Dose: 100 mls/hr Non-Formulary Medication (Multivitamin [Multivitamins]) 1 each PO DAILY [facility] Omeprazole (Omeprazole) 20 mg PO DAILY [facility] *Q Meaningful Use (DIS) - VTE *Q VTE Criteria *Q: - Stroke *Q Stroke Criteria *Q: - AMI *Q AMI Criteria *Q:
[2016-11-24 12:36] VITALS: BP 115/54
== END 2016-11-24 14:00 | disposition home or self-care (01) | DRG 194 ==
LOC: MW.ED 22:33 → MW.MS 11-22 00:38
PROVIDERS: ADMIT Family Medicine; ATTEND Family Medicine
DX: A41.9 Sepsis, unspecified organism (principal); J18.9 Pneumonia, unspecified organism; J18.1 Lobar pneumonia, unspecified organism; J44.9 Chronic obstructive pulmonary disease, unspecified; N30.00 Acute cystitis without hematuria; B38.2 Pulmonary coccidioidomycosis, unspecified; M19.90 Unspecified osteoarthritis, unspecified site; B44.9 Aspergillosis, unspecified; R53.1 Weakness; J45.909 Unspecified asthma, uncomplicated; F32.9 Major depressive disorder, single episode, unspecified; J43.9 Emphysema, unspecified; K21.9 Gastro-esophageal reflux disease without esophagitis; R91.8 Other nonspecific abnormal finding of lung field; Z88.0 Allergy status to penicillin; Z88.8 Allergy status to other drugs, medicaments and biological substances; Z79.899 Other long term (current) drug therapy; Z87.891 Personal history of nicotine dependence
CPT/HCPCS: 36415; 71020; 80053; 81001; 83605; 83735; 84484; 85025; 87040 ×2; 87086; 93005; 96365; 99285; J2185; J7030; 71250; 71250-26; 80048; 82272; 87070; 87205; 94640; 97161-GP; A9270-GY; J1644; J1956; J7040

== ENCOUNTER 2017-11-18 00:19 | Emergency (ER) | payer MEDICARE, BC ==
[2017-11-18] MEDS ORDERED: Sodium Chloride 0.9% 2.5 ML Syringe FLUSH PRN (01:04)
[2017-11-18] MEDS ORDERED: Sodium Chloride 0.9% 10 ML Syringe FLUSH PRN (01:04)
--- NOTE | 2017-11-18 01:13 | EDM.PDOC ---
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 The patient says he has no chest pain no new shortness of breath and no new cough and he has a chronic cough. Patient has been worked up for TB and other infections recently and was seen by his provider, Dr Pacheco air support operations operator, in [place] at the end of August and had a CT scan of the chest performed after that visit. Here in our computer he has had testing including a Gram stain and AFB as well as labs at the end of August and the beginning of September. Patient also had a swallow study done on September 11 here which showed trace nasopharyngeal reflux and flash penetration noted with liquids. The patient says that he follows regularly with his doctors in [place] and [facility] where he saw bright red blood and no sputum. The patient does not smoke and he currently has no complaints of fever chills runny nose sore throat chest pain abdominal pain vomiting or diarrhea. He has otherwise been eating and drinking normally. He does nebulizer treatments twice a day as well as other inhalers and he says that his antifungal medication that he has chronically been on has been changed several times over the last few months and he is currently awaiting a new prescription from the [place] currently. The patient says he would not be here if he did not see that sputum and he is concerned. He says this has happened one time previously. The patient tells me he has a long-standing history of getting breathless with any increased activities and he does not use oxygen for that he just rests and continues doing his activities. This is long- standing and not new or different today. The patient's respiratory rate was slightly increased as well as his heart rate and when I asked him if he felt like he needed nebulizer treatment or oxygen he said actually not. His O2 sat on arrival was 95% Review of systems: As per history of present illness and below otherwise all systems reviewed and negative. Past medical history: As per history of present illness and as reviewed below otherwise noncontributory. Surgical history: As per history of present illness and as reviewed below otherwise noncontributory. Social history: No reported history of drug or alcohol abuse. Family history: As per history of present illness and as reviewed below otherwise noncontributory. Physical exam: General: Well-developed well-nourished man who is nontoxic and quite chatty in the room on my evaluation. He exhibits no breathlessness and his voice is normal. HEENT: Atraumatic, normocephalic, pupils reactive, negative for conjunctival pallor or scleral icterus, mucous membranes moist, throat clear, neck supple, nontender, trachea midline. Lungs: Clear to auscultation, there are occasional coarse breath sounds bilaterally but no wheezing stridor or work of breathing breath sounds equal bilaterally, chest nontender. Heart: S1S2, regular, negative for clicks, rubs, or JVD. Abdomen: Soft, nondistended, nontender. Negative for masses or hepatosplenomegaly. Negative for costovertebral tenderness. Pelvis: Stable nontender. Genitourinary: Deferred. Rectal: Deferred. Extremities: Atraumatic, negative for cords or calf pain. Neurovascular unremarkable. Pedal edema or leg asymmetry Neuro: Awake, alert, oriented. Cranial nerves II through XII unremarkable. Cerebellum unremarkable. Motor and sensory unremarkable throughout. Exam nonfocal. Diagnostics: Chest x-ray CBC CMP INR lactic acid Therapeutics: Pulse ox O2 if needed saline lock The results of CT scan of the chest that was performed at the end of August, September 04, and ordered by Dr. Pacheco was obtained from [facility] in [place]. The impression is that there is spiculated masses in the left upper lung which appear to be stable and reflect underlying scar tissue but there was a new area of consolidative mass at the right lung apex posterior to the pre- existing areas of cavitation and fibrotic change he was concerned about this new density and the recommendation for a order interval of follow-up was recommended in light of the new finding. He was suspected in the report that it could be progression of advanced fibrotic change but it did have considerable soft tissue nodular component to it so there was concern. When asked the patient about the CT scan results that he was told by his doctor he was told that there was no significant changes. I will discuss with him these CT scan findings. Patient and at bedside are aware of all testing results and the need to contact his air support operations operator first thing in the morning for further evaluation and advice regarding tonight's events. He currently feels asymptomatic and would like to go home and at this point I do not feel that admission is merited nor do we have the capability to provide him for further workup of this problem. He and feel comfortable going home and doing this follow-up. 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 - Related Data Allergies Allergy/AdvReac Type Severity Reaction Status Date / Time cefuroxime axetil Allergy Diarrhea Verified 11/18/17 00:51 [From Ceftin] clindamycin Allergy Diarrhea Verified 11/18/17 00:59 Penicillins Allergy Syncope Verified 11/18/17 00:59 Home Meds: Home Meds Albuterol [Proventil HFA] 2 inh INH Q4H PRN 10/18/15 [History] Montelukast [Singulair] 10 mg PO BEDTIME 10/18/15 [History] Multivitamin [Multivitamins] 1 each PO DAILY 10/18/15 [History] Omeprazole [Prilosec] 40 mg PO ACDINNER 10/18/15 [History] Albuterol Sulfate 2.5 mg IH BID 11/22/16 [History] Naproxen Sodium [Aleve] 220 mg PO ASDIRECTED PRN 11/22/16 [History] Potassium Gluconate 99 mg PO DAILY 11/22/16 [History] Tiotropium Br/Olodaterol HCl [Stiolto Respimat Inhal [place]] 2 inh IH DAILY 11/22 [History] Fluticasone Propionate [Flovent] 1 spray JESSE DAILY 11/18/17 [History] Past Medical History HEENT History: Reports: Hard of Hearing, Impaired Vision Cardiovascular History: Reports: None Respiratory History: Reports: Asthma, COPD, Pneumothorax, Other (See Below) Other Respiratory History: "lung infection" "valley fever"? Gastrointestinal History: Reports: Cholelithiasis, GERD Genitourinary History: Reports: Prostate Disorder Musculoskeletal History: Reports: Arthritis, Fracture Neurological History: Reports: None Psychiatric History: Reports: Depression Endocrine/Metabolic History: Reports: None Hematologic History: Reports: None Immunologic History: Reports: None Oncologic (Cancer) History: Reports: None Dermatologic History: Reports: None - Infectious Disease History Infectious Disease History: Reports: Measles - Past Surgical History Head Surgeries/Procedures: Reports: None GI Surgical History: Reports: Cholecystectomy Musculoskeletal Surgical History: Reports: Shoulder Surgery Social & Family History - Family History Family Medical History: Noncontributory - Tobacco Use Smoking Status *Q: Never Smoker - Caffeine Use Caffeine Use: Reports: Coffee - Recreational Drug Use Recreational Drug Use: No - Living Situation & Occupation Living situation: Reports: Occupation: Retired ED ROS GENERAL - Review of Systems Review Of Systems: ROS reveals no pertinent complaints other than HPI. ED EXAM, GENERAL - Physical Exam Exam: See Below (see Dictation) Course - Vital Signs Last Recorded V/S: Last Vital Signs Temp 36.8 C 11/18/17 00:19 Pulse 93 11/18/17 01:58 Resp 13 11/18/17 01:58 BP 121/46 L 11/18/17 01:58 Pulse Ox 95 11/18/17 01:58 - Orders/Labs/Meds Orders: Active Orders 24 hr Category Date Time Status Cardiac Monitoring [RC] . DIRECTED Care 11/18/17 01:04 Active Oxygen Therapy, ED [RC] ASDIRECTED Care 11/18/17 01:04 Active Pulse Oximetry [RC] ASDIRECTED Care 11/18/17 01:04 Active Chest 2V [CR] Stat Exams 11/18/17 01:04 Taken Sodium Chloride 0.9% [Saline Flush] Med 11/18/17 01:04 Active 10 ml FLUSH ASDIRECTED PRN Sodium Chloride 0.9% [Saline Flush] Med 11/18/17 01:04 Active 2.5 ml FLUSH ASDIRECTED PRN Saline Lock Insert [OM.PC] Stat Oth 11/18/17 01:04 Ordered Medication Orders Sodium Chloride (Saline Flush) 10 ml FLUSH ASDIRECTED PRN PRN Reason: Keep Vein Open Sodium Chloride (Saline Flush) 2.5 ml FLUSH ASDIRECTED PRN PRN Reason: Keep Vein Open Labs: Laboratory Tests 11/18/17 11/18/17 11/18/17 Range/Units 00:47 00:47 00:47 WBC 8.42 (4.0-11.0) K/uL RBC 3.99 L (4.50-5.90) M/uL Hgb 11.5 L (13.0-17.0) g/dL Hct 35.8 L (38.0-50.0) % MCV 89.7 (80.0-98.0) fL MCH 28.8 (27.0-32.0) pg MCHC 32.1 (31.0-37.0) g/dL RDW Std Deviation 49.3 (28.0-62.0) fl RDW Coeff of [place] 15 (11.0-15.0) % Plt Count 322 (150-400) K/uL MPV 8.80 (7.40-12.00) fL Neut % (Auto) 58.3 (48.0-80.0) % Lymph % (Auto) 27.9 (16.0-40.0) % [place] % (Auto) 10.8 (0.0-15.0) % Eos % (Auto) 2.5 (0.0-7.0) % Baso % (Auto) 0.5 (0.0-1.5) % Neut # (Auto) 4.9 (1.4-5.7) K/uL Lymph # (Auto) 2.4 (0.6-2.4) K/uL [place] # (Auto) 0.9 H (0.0-0.8) K/uL Eos # (Auto) 0.2 (0.0-0.7) K/uL Baso # (Auto) 0.0 (0.0-0.1) K/uL INR 1.00 Lactate 0.8 (0.20-2.00) mmol/L Sodium (136-148) mmol/L Potassium (3.5-5.1) mmol/L Chloride (98-107) mmol/L Carbon Dioxide (21.0-32.0) mmol/L BUN (7.0-18.0) mg/dL Creatinine (0.8-1.3) mg/dL Est Cr Clr Drug Dosing Estimated GFR (MDRD) ml/min Glucose (74-106) mg/dL Calcium (8.5-10.1) mg/dL Total Bilirubin (0.2-1.0) mg/dL AST (15-37) IU/L ALT (14-63) IU/L Alkaline Phosphatase (46-116) U/L Total Protein (6.4-8.2) g/dL Albumin (3.4-5.0) g/dL Globulin (2.0-3.5) g/dL Albumin/Globulin Ratio (1.3-2.8) / Range/Units 00:47 WBC (4.0-11.0) K/uL RBC (4.50-5.90) M/uL Hgb (13.0-17.0) g/dL Hct (38.0-50.0) % MCV (80.0-98.0) fL MCH (27.0-32.0) pg MCHC (31.0-37.0) g/dL RDW Std Deviation (28.0-62.0) fl RDW Coeff of [place] (11.0-15.0) % Plt Count (150-400) K/uL MPV (7.40-12.00) fL Neut % (Auto) (48.0-80.0) % Lymph % (Auto) (16.0-40.0) % [place] % (Auto) (0.0-15.0) % Eos % (Auto) (0.0-7.0) % Baso % (Auto) (0.0-1.5) % Neut # (Auto) (1.4-5.7) K/uL Lymph # (Auto) (0.6-2.4) K/uL [place] # (Auto) (0.0-0.8) K/uL Eos # (Auto) (0.0-0.7) K/uL Baso # (Auto) (0.0-0.1) K/uL INR Lactate (0.20-2.00) mmol/L Sodium 138 (136-148) mmol/L Potassium 4.3 (3.5-5.1) mmol/L Chloride 104 (98-107) mmol/L Carbon Dioxide 25.7 (21.0-32.0) mmol/L BUN 31 H (7.0-18.0) mg/dL Creatinine 1.4 H (0.8-1.3) mg/dL Est Cr Clr Drug Dosing TNP Estimated GFR (MDRD) 48.2 ml/min Glucose 121 H (74-106) mg/dL Calcium 9.1 (8.5-10.1) mg/dL Total Bilirubin 0.3 (0.2-1.0) mg/dL AST 17 (15-37) IU/L ALT 18 (14-63) IU/L Alkaline Phosphatase 66 (46-116) U/L Total Protein 8.2 (6.4-8.2) g/dL Albumin 3.7 (3.4-5.0) g/dL Globulin 4.5 H (2.0-3.5) g/dL Albumin/Globulin Ratio 0.8 L (1.3-2.8) Meds: Medications Generic Name Dose Route Start Last Admin Trade Name Freq PRN Reason Stop Dose Admin Sodium Chloride 10 ml 11/18/17 01:04 Saline Flush FLUSH ASDIRECTED PRN Keep Vein Open Sodium Chloride 2.5 ml 11/18/17 01:04 Saline Flush FLUSH ASDIRECTED PRN Keep Vein Open Departure - Departure Time of Disposition: 02:05 Disposition: Home, Self-Care 01 Condition: Good Clinical Impression: Hemoptysis - Discharge Information Referrals: Ramy Concepcion MD [Primary Care Provider] - Forms: ED Department Discharge Additional Instructions: The following information is given to patients seen in the emergency department who are being discharged to home. This information is to outline your options for follow-up care. We provide all patients seen in our emergency department with a follow-up referral. The need for follow-up, as well as the timing and circumstances, are variable depending upon the specifics of your emergency department visit. If you don't have a primary care physician on staff, we will provide you with a referral. We always advise you to contact your personal physician following an emergency department visit to inform them of the circumstance of the visit and for follow-up with them and/or the need for any referrals to a consulting specialist. The emergency department will also refer you to a specialist when appropriate. This referral assures that you have the opportunity for followup care with a specialist. All of these measure are taken in an effort to provide you with optimal care, which includes your followup. Under all circumstances we always encourage you to contact your private physician who remains a resource for coordinating your care. When calling for followup care, please make the office aware that this follow-up is from your recent emergency room visit. If for any reason you are refused follow-up, please contact the [facility] emergency department at and ask to speak to the emergency department charge nurse. [facility] Primary care- Internal Medicine and Family [address] [address] Please contact her air support operations operator in [place] this morning to discuss nury's events and discuss with her further care and evaluation of this new episodic event. Please return to ER as needed and as discussed. - My Orders Last 24 Hours: My Active Orders 11/18/17 01:04 Cardiac Monitoring [RC] . DIRECTED Oxygen Therapy, ED [RC] ASDIRECTED Pulse Oximetry [RC] ASDIRECTED Chest 2V [CR] Stat Sodium Chloride 0.9% [Saline Flush] 10 ml FLUSH ASDIRECTED PRN Sodium Chloride 0.9% [Saline Flush] 2.5 ml FLUSH ASDIRECTED PRN Saline Lock Insert [OM.PC] Stat - Assessment/Plan Last 24 Hours: My Active Orders 11/18/17 01:04 Cardiac Monitoring [RC] . DIRECTED Oxygen Therapy, ED [RC] ASDIRECTED Pulse Oximetry [RC] ASDIRECTED Chest 2V [CR] Stat Sodium Chloride 0.9% [Saline Flush] 10 ml FLUSH ASDIRECTED PRN Sodium Chloride 0.9% [Saline Flush] 2.5 ml FLUSH ASDIRECTED PRN Saline Lock Insert [OM.PC] Stat
[2017-11-18 01:21] LABS: CHLORIDE,CL 104 mmol/L (98-107); SODIUM,NA 138 mmol/L (136-148)
[2017-11-18 01:59] VITALS: BP 121/46
--- NOTE | 2017-11-19 13:49 | CR ---
EXAM DATE: 11/18/17 PATIENT'S AGE: 87 Patient: [facility] Facility: [place], [place] Site . Site : [id number] Study: XRay Chest [id number]/14/2018 1:37:54 AM Ordering Physician: Kathryn Fernandes Final Report: INDICATION: Cough and shortness of breath. COMPARISON: 01/02/2017. FINDINGS/IMPRESSION: Pulmonary hyperexpansion consistent with chronic obstructive pulmonary disease, as before. Extensive lung scarring, greatest at the right apex, not significantly changed. No definite acute infiltrates. No pleural effusions. Normal heart size. Spinal degenerative changes. Dictated by Rod Marcos MD @ 11/18/2017 1:56:27 AM Dictated by: Rod Marcos MD @ 11/18/2017 01:56:37 (Electronic Signature) Report Signed by Proxy. [facility]
== END 2017-11-18 02:19 | disposition home or self-care (01) ==
LOC: MW.ED 00:19
DX: R04.2 Hemoptysis (principal); Z88.1 Allergy status to other antibiotic agents; Z88.0 Allergy status to penicillin; Z88.8 Allergy status to other drugs, medicaments and biological substances; Z79.899 Other long term (current) drug therapy
CPT/HCPCS: 71046; 71046-26; 80053; 83605; 85025; 85610; 99283

== ENCOUNTER 2017-11-27 13:25 | Emergency (ER) | payer MEDICARE, BC ==
--- NOTE | 2017-11-27 13:38 | EDM.PDOC ---
ED HPI GENERAL MEDICAL PROBLEM - General Chief Complaint: Genitourinary Problem Stated Complaint: POSSIBLE UTI Time Seen by Provider: 11/27/17 13:34 - History of Present Illness INITIAL COMMENTS - FREE TEXT/NARRATIVE: HISTORY AND PHYSICAL: History of present illness: Patient is an 87-year-old white male presents with concern of frequent small urination with discomfort 1 day he states he's been unable to urinate and feels that he has urinary retention he's had this problem in the past. He denies fever chills nausea vomiting he did recently take Dulcolax for some constipation is now had some loose stool. Review of systems: As per history of present illness and below otherwise all systems reviewed and negative. Past medical history: As per history of present illness and as reviewed below otherwise noncontributory. Surgical history: As per history of present illness and as reviewed below otherwise noncontributory. Social history: No reported history of drug or alcohol abuse. Family history: As per history of present illness and as reviewed below otherwise noncontributory. Physical exam: HEENT: Atraumatic, normocephalic, pupils reactive, negative for conjunctival pallor or scleral icterus, mucous membranes moist, throat clear, neck supple, nontender, trachea midline. Lungs: Clear to auscultation, breath sounds equal bilaterally, chest nontender. Heart: S1S2, regular, negative for clicks, rubs, or JVD. Abdomen: Soft, nondistended, mild suprapubic fullness no tenderness rebound guarding. Negative for masses or hepatosplenomegaly. Negative for costovertebral tenderness. Pelvis: Stable nontender. Genitourinary: Deferred. Rectal: Deferred. Extremities: Atraumatic, negative for cords or calf pain. Neurovascular unremarkable. Neuro: Awake, alert, oriented. Cranial nerves II through XII unremarkable. Cerebellum unremarkable. Motor and sensory unremarkable throughout. Exam nonfocal. Diagnostics: CBC CMP F UA urine culture and sensitivity Therapeutics: Myrick catheter with leg bag Impression: #1 UTI #2 rule out urinary retention Definitive disposition and diagnosis as appropriate pending reevaluation and review of above. - Related Data Allergies Allergy/AdvReac Type Severity Reaction Status Date / Time cefuroxime axetil Allergy Diarrhea Verified 11/27/17 13:35 [From Ceftin] clindamycin Allergy Diarrhea Verified 11/27/17 13:35 Penicillins Allergy Syncope Verified 11/27/17 13:35 Home Meds: Home Meds Albuterol [Proventil HFA] 2 inh INH Q4H PRN 10/18/15 [History] Montelukast [Singulair] 10 mg PO BEDTIME 10/18/15 [History] Multivitamin [Multivitamins] 1 each PO DAILY 10/18/15 [History] Omeprazole [Prilosec] 40 mg PO ACDINNER 10/18/15 [History] Albuterol Sulfate 2.5 mg IH BID 11/22/16 [History] Naproxen Sodium [Aleve] 220 mg PO ASDIRECTED PRN 11/22/16 [History] Potassium Gluconate 99 mg PO DAILY 11/22/16 [History] Tiotropium Br/Olodaterol HCl [Stiolto Respimat Inhal [place]] 2 inh IH DAILY 11/22 [History] Fluticasone Propionate [Flovent] 1 spray JESSE DAILY 11/18/17 [History] Past Medical History HEENT History: Reports: Hard of Hearing, Impaired Vision Cardiovascular History: Reports: None Respiratory History: Reports: Asthma, COPD, Pneumothorax, Other (See Below) Other Respiratory History: "lung infection" "valley fever"? Gastrointestinal History: Reports: Cholelithiasis, GERD Genitourinary History: Reports: Prostate Disorder Musculoskeletal History: Reports: Arthritis, Fracture Neurological History: Reports: None Psychiatric History: Reports: Depression Endocrine/Metabolic History: Reports: None Hematologic History: Reports: None Immunologic History: Reports: None Oncologic (Cancer) History: Reports: None Dermatologic History: Reports: None - Infectious Disease History Infectious Disease History: Reports: Measles - Past Surgical History Head Surgeries/Procedures: Reports: None GI Surgical History: Reports: Cholecystectomy Musculoskeletal Surgical History: Reports: Shoulder Surgery Social & Family History - Family History Family Medical History: Noncontributory - Caffeine Use Caffeine Use: Reports: Coffee - Living Situation & Occupation Living situation: Reports: Occupation: Retired ED ROS GENERAL - Review of Systems Review Of Systems: ROS reveals no pertinent complaints other than HPI. ED EXAM, GENERAL - Physical Exam Exam: See Below (C dictation) Course - Vital Signs Last Recorded V/S: Last Vital Signs Temp 37.5 C 11/27/17 13:37 Pulse 124 H 11/27/17 13:37 Resp 18 11/27/17 13:37 BP 123/90 11/27/17 13:37 Pulse Ox 99 11/27/17 13:37 - Orders/Labs/Meds Orders: Active Orders 24 hr Category Date Time Status Insert Myrick Catheter [Insert Urinary Catheter] [OM.PC] Care 11/27/17 13:45 Ordered Q24H Urinary Catheter Assessment [RC] ASDIRECTED Care 11/27/17 13:40 Active CULTURE URINE [RM] Stat Lab 11/27/17 13:45 Ordered UA W/MICROSCOPIC [URIN] Stat Lab 11/27/17 13:45 Ordered Labs: Laboratory Tests 11/27/17 11/27/17 11/27/17 Range/Units 13:45 13:53 13:53 WBC 14.43 H (4.0-11.0) K/uL RBC 3.95 L (4.50-5.90) M/uL Hgb 11.3 L (13.0-17.0) g/dL Hct 35.3 L (38.0-50.0) % MCV 89.4 (80.0-98.0) fL MCH 28.6 (27.0-32.0) pg MCHC 32.0 (31.0-37.0) g/dL RDW Std Deviation 49.9 (28.0-62.0) fl RDW Coeff of Keaton 15 (11.0-15.0) % Plt Count 246 (150-400) K/uL MPV 8.70 (7.40-12.00) fL Neut % (Auto) 86.7 H (48.0-80.0) % Lymph % (Auto) 5.0 L (16.0-40.0) % [place] % (Auto) 7.7 (0.0-15.0) % Eos % (Auto) 0.4 (0.0-7.0) % Baso % (Auto) 0.2 (0.0-1.5) % Neut # (Auto) 12.5 H (1.4-5.7) K/uL Lymph # (Auto) 0.7 (0.6-2.4) K/uL [place] # (Auto) 1.1 H (0.0-0.8) K/uL Eos # (Auto) 0.1 (0.0-0.7) K/uL Baso # (Auto) 0.0 (0.0-0.1) K/uL Nucleated RBC % 0.0 /100WBC Nucleated RBCs # 0 K/uL Sodium 139 (136-148) mmol/L Potassium 4.0 (3.5-5.1) mmol/L Chloride 104 (98-107) mmol/L Carbon Dioxide 25.0 (21.0-32.0) mmol/L BUN 26 H (7.0-18.0) mg/dL Creatinine 1.4 H (0.8-1.3) mg/dL Est Cr Clr Drug Dosing 37.12 mL/min Estimated GFR (MDRD) 48.2 ml/min Glucose 156 H (74-106) mg/dL Calcium 8.6 (8.5-10.1) mg/dL Total Bilirubin 0.5 (0.2-1.0) mg/dL AST 17 (15-37) IU/L ALT 15 (14-63) IU/L Alkaline Phosphatase 57 (46-116) U/L Total Protein 7.7 (6.4-8.2) g/dL Albumin 3.5 (3.4-5.0) g/dL Globulin 4.2 H (2.0-3.5) g/dL Albumin/Globulin Ratio 0.8 L (1.3-2.8) Urine Color YELLOW Urine Appearance CLOUDY Urine pH 6.0 (5.0-8.0) Ur Specific [place] 1.020 (1.001-1.035) Urine Protein NEGATIVE (NEGATIVE) mg/dL Urine Glucose (UA) NEGATIVE (NEGATIVE) mg/dL Urine Ketones NEGATIVE (NEGATIVE) mg/dL Urine Occult Blood TRACE-INTACT (NEGATIVE) Urine Nitrite POSITIVE H (NEGATIVE) Urine Bilirubin NEGATIVE (NEGATIVE) Urine Urobilinogen 0.2 (<2.0) EU/dL Ur Leukocyte Esterase SMALL (NEGATIVE) Urine RBC 0-2 (0-2/HPF) Urine WBC 25-30 (0-5/HPF) Ur Epithelial Cells OCCASIONAL (NONE-FEW) Urine Bacteria 2+ H (NEGATIVE) Departure - Departure Time of Disposition: 14:57 Disposition: Home, Self-Care 01 Condition: Good Clinical Impression: UTI, Urinary tract infectious disease, Urinary retention - Discharge Information Referrals: PCP,None [Primary Care Provider] - Forms: ED Department Discharge Additional Instructions: The following information is given to patients seen in the emergency department who are being discharged to home. This information is to outline your options for follow-up care. We provide all patients seen in our emergency department with a follow-up referral. The need for follow-up, as well as the timing and circumstances, are variable depending upon the specifics of your emergency department visit. If you don't have a primary care physician on staff, we will provide you with a referral. We always advise you to contact your personal physician following an emergency department visit to inform them of the circumstance of the visit and for follow-up with them and/or the need for any referrals to a consulting specialist. The emergency department will also refer you to a specialist when appropriate. This referral assures that you have the opportunity for followup care with a specialist. All of these measure are taken in an effort to provide you with optimal care, which includes your followup. Under all circumstances we always encourage you to contact your private physician who remains a resource for coordinating your care. When calling for followup care, please make the office aware that this follow-up is from your recent emergency room visit. If for any reason you are refused follow-up, please contact the [facility] emergency department at and asked to speak to the emergency department charge nurse. [facility] Specialty Care - Urology [address] [place] [id number] Levaquin as prescribed follow-up urology above: Schedule appointment follow-up primary medical doctor SCHEDULE appointment leg bag Myrick care as discussed return as needed as discussed[] - My Orders Last 24 Hours: My Active Orders 11/27/17 13:40 Urinary Catheter Assessment [RC] ASDIRECTED 11/27/17 13:45 Insert Myrick Catheter [Insert Urinary Catheter] [OM.PC] Q24H CULTURE URINE [RM] Stat UA W/MICROSCOPIC [URIN] Stat - Assessment/Plan Last 24 Hours: My Active Orders 11/27/17 13:40 Urinary Catheter Assessment [RC] ASDIRECTED 11/27/17 13:45 Insert Myrick Catheter [Insert Urinary Catheter] [OM.PC] Q24H CULTURE URINE [RM] Stat UA W/MICROSCOPIC [URIN] Stat
[2017-11-27 15:01] VITALS: BP 136/62
== END 2017-11-27 15:40 | disposition home or self-care (01) ==
LOC: MW.ED 13:25
DX: N39.0 Urinary tract infection, site not specified (principal); J44.9 Chronic obstructive pulmonary disease, unspecified; F32.9 Major depressive disorder, single episode, unspecified; Z79.899 Other long term (current) drug therapy; Z88.1 Allergy status to other antibiotic agents; Z88.0 Allergy status to penicillin
CPT/HCPCS: 36415; 80053; 81001; 85025; 87086; 87088; 87186; 99283

== ENCOUNTER 2017-11-27 19:20 | Emergency (ER) | payer MEDICARE, BC ==
[2017-11-27] MEDS ORDERED: Acetaminophen 500 MG Tab PO ONE (19:31)
[2017-11-27] MEDS ORDERED: Levofloxacin/Dextrose 5%-Water 750 MG in Premix Bag 1 BAG IV ONE (19:31)
[2017-11-27] MEDS ORDERED: Sodium Chloride 0.9% 2.5 ML Syringe FLUSH PRN (19:31)
[2017-11-27] MEDS ORDERED: Sodium Chloride 0.9% 10 ML Syringe FLUSH PRN (19:31)
--- NOTE | 2017-11-27 19:34 | EDM.PDOC ---
ED HPI GENERAL MEDICAL PROBLEM - General Chief Complaint: Respiratory Problem Stated Complaint: AMBULANCE Time Seen by Provider: 11/27/17 19:21 - History of Present Illness INITIAL COMMENTS - FREE TEXT/NARRATIVE: HISTORY AND PHYSICAL: History of present illness: Patient is an 87-year-old white male who was seen earlier in the emergency department for urinary retention and urinary tract infection Myrick catheter was placed and patient was discharged home he returns now with a complaint of shortness of breath is also noted to have a fever on arrival. Patient has been without vomiting denies chest pain abdominal pain or other concern Review of systems: As per history of present illness and below otherwise all systems reviewed and negative. Past medical history: As per history of present illness and as reviewed below otherwise noncontributory. Surgical history: As per history of present illness and as reviewed below otherwise noncontributory. Social history: No reported history of drug or alcohol abuse. Family history: As per history of present illness and as reviewed below otherwise noncontributory. Physical exam: HEENT: Atraumatic, normocephalic, pupils reactive, negative for conjunctival pallor or scleral icterus, mucous membranes moist, throat clear, neck supple, nontender, trachea midline. Lungs: Slightly coarse bilaterally no rhonchi crackles or wheeze, breath sounds equal bilaterally, chest nontender. Heart: S1S2, regular, negative for clicks, rubs, or JVD. Abdomen: Soft, nondistended, nontender. Negative for masses or hepatosplenomegaly. Negative for costovertebral tenderness. Pelvis: Stable nontender. Genitourinary: Myrick in place Rectal: Deferred. Extremities: Atraumatic, negative for cords or calf pain. Neurovascular unremarkable. Neuro: Awake, alert, oriented. Cranial nerves II through XII unremarkable. Cerebellum unremarkable. Motor and sensory unremarkable throughout. Exam nonfocal. Diagnostics: CBC CMP troponin and BNP PT/INR chest x-ray EKG blood cultures 2 lactic acid Therapeutics: IV O2 monitor Levaquin 750 mg IV Impression: Over 1 UTI #2 history of acute urinary retention #3 fever #4 dyspnea Definitive disposition and diagnosis as appropriate pending reevaluation and review of above. - Related Data Allergies Allergy/AdvReac Type Severity Reaction Status Date / Time cefuroxime axetil Allergy Diarrhea Verified 11/27/17 13:35 [From Ceftin] clindamycin Allergy Diarrhea Verified 11/27/17 13:35 Penicillins Allergy Syncope Verified 11/27/17 13:35 Home Meds: Home Meds Albuterol [Proventil HFA] 2 inh INH Q4H PRN 10/18/15 [History] Montelukast [Singulair] 10 mg PO BEDTIME 10/18/15 [History] Multivitamin [Multivitamins] 1 each PO DAILY 10/18/15 [History] Omeprazole [Prilosec] 40 mg PO ACDINNER 10/18/15 [History] Albuterol Sulfate 2.5 mg IH BID 11/22/16 [History] Naproxen Sodium [Aleve] 220 mg PO ASDIRECTED PRN 11/22/16 [History] Potassium Gluconate 99 mg PO DAILY 11/22/16 [History] Tiotropium Br/Olodaterol HCl [Stiolto Respimat Inhal [place]] 2 inh IH DAILY 11/22 [History] Fluticasone Propionate [Flovent] 1 spray JESSE DAILY 11/18/17 [History] Past Medical History HEENT History: Reports: Hard of Hearing, Impaired Vision Cardiovascular History: Reports: None Respiratory History: Reports: Asthma, COPD, Pneumothorax, Other (See Below) Other Respiratory History: "lung infection" "valley fever"? Gastrointestinal History: Reports: Cholelithiasis, GERD Genitourinary History: Reports: Prostate Disorder Musculoskeletal History: Reports: Arthritis, Fracture Neurological History: Reports: None Psychiatric History: Reports: Depression Endocrine/Metabolic History: Reports: None Hematologic History: Reports: None Immunologic History: Reports: None Oncologic (Cancer) History: Reports: None Dermatologic History: Reports: None - Infectious Disease History Infectious Disease History: Reports: Measles - Past Surgical History Head Surgeries/Procedures: Reports: None GI Surgical History: Reports: Cholecystectomy Musculoskeletal Surgical History: Reports: Shoulder Surgery Social & Family History - Family History Family Medical History: Noncontributory - Caffeine Use Caffeine Use: Reports: Coffee - Living Situation & Occupation Living situation: Reports: Occupation: Retired ED ROS GENERAL - Review of Systems Review Of Systems: ROS reveals no pertinent complaints other than HPI. ED EXAM, GENERAL - Physical Exam Exam: See Below (See dictation) Course - Orders/Labs/Meds Orders: Active Orders 24 hr Category Date Time Status Cardiac Monitoring [RC] . DIRECTED Care 11/27/17 19:30 Active EKG Documentation Completion [RC] STAT Care 11/27/17 19:30 Active Oxygen Therapy, ED [RC] ASDIRECTED Care 11/27/17 19:30 Active Chest 1V Frontal [CR] Stat Exams 11/27/17 20:16 Taken CULTURE BLOOD [BC] Stat Lab 11/27/17 19:47 Received CULTURE BLOOD [BC] Stat Lab 11/27/17 20:00 Received Enoxaparin [Lovenox] Med 11/27/17 20:47 Once 70 mg SUBCUT ONETIME ONE Levofloxacin/Dextrose 5%-Water [Levaquin in D5W 750 MG/ Med 11/27/17 19:31 Active 150 ML] 750 mg Premix Bag 1 bag IV ONETIME Sodium Chloride 0.9% [Saline Flush] Med 11/27/17 19:31 Active 10 ml FLUSH ASDIRECTED PRN Sodium Chloride 0.9% [Saline Flush] Med 11/27/17 19:31 Active 2.5 ml FLUSH ASDIRECTED PRN Blood Culture x2 Reflex Set [OM.PC] Stat Oth 11/27/17 19:31 Ordered Saline Lock Insert [OM.PC] Stat Oth 11/27/17 19:30 Ordered Medication Orders Levofloxacin/Dextrose 750 mg/ (Premix) 150 mls @ 100 mls/hr IV ONETIME ONE Stop: 11/27/17 21:00 Last Admin: 11/27/17 19:56 Dose: 100 mls/hr Sodium Chloride (Saline Flush) 10 ml FLUSH ASDIRECTED PRN PRN Reason: Keep Vein Open Last Admin: 11/27/17 19:56 Dose: 10 ml Sodium Chloride (Saline Flush) 2.5 ml FLUSH ASDIRECTED PRN PRN Reason: Keep Vein Open Last Admin: 11/27/17 19:58 Dose: 2.5 ml Labs: Laboratory Tests 11/27/17 11/27/17 11/27/17 Range/Units 19:47 19:47 19:47 WBC 19.33 H (4.0-11.0) K/uL RBC 4.07 L (4.50-5.90) M/uL Hgb 11.6 L (13.0-17.0) g/dL Hct 36.0 L (38.0-50.0) % MCV 88.5 (80.0-98.0) fL MCH 28.5 (27.0-32.0) pg MCHC 32.2 (31.0-37.0) g/dL RDW Std Deviation 49.9 (28.0-62.0) fl RDW Coeff of Keaton 15 (11.0-15.0) % Plt Count 259 (150-400) K/uL MPV 8.80 (7.40-12.00) fL Neut % (Auto) 93.1 H (48.0-80.0) % Lymph % (Auto) 2.1 L (16.0-40.0) % [place] % (Auto) 4.7 (0.0-15.0) % Eos % (Auto) 0.0 (0.0-7.0) % Baso % (Auto) 0.1 (0.0-1.5) % Neut # (Auto) 18.0 H (1.4-5.7) K/uL Lymph # (Auto) 0.4 L (0.6-2.4) K/uL [place] # (Auto) 0.9 H (0.0-0.8) K/uL Eos # (Auto) 0.0 (0.0-0.7) K/uL Baso # (Auto) 0.0 (0.0-0.1) K/uL Nucleated RBC % 0.0 /100WBC Nucleated RBCs # 0 K/uL INR 1.04 Lactate (0.20-2.00) mmol/L Sodium 137 (136-148) mmol/L Potassium 4.0 (3.5-5.1) mmol/L Chloride 101 (98-107) mmol/L Carbon Dioxide 25.5 (21.0-32.0) mmol/L BUN 22 H (7.0-18.0) mg/dL Creatinine 1.4 H (0.8-1.3) mg/dL Est Cr Clr Drug Dosing TNP Estimated GFR (MDRD) 48.2 ml/min Glucose 129 H (74-106) mg/dL Calcium 8.9 (8.5-10.1) mg/dL Total Bilirubin 1.3 H (0.2-1.0) mg/dL AST 17 (15-37) IU/L ALT 15 (14-63) IU/L Alkaline Phosphatase 61 (46-116) U/L Troponin I 0.160 H* (0.000-0.056) ng/mL B-Natriuretic Peptide (<100) PG/ML Total Protein 8.1 (6.4-8.2) g/dL Albumin 3.6 (3.4-5.0) g/dL Globulin 4.5 H (2.0-3.5) g/dL Albumin/Globulin Ratio 0.8 L (1.3-2.8) 11/27/17 11/27/17 Range/Units 19:47 19:47 WBC (4.0-11.0) K/uL RBC (4.50-5.90) M/uL Hgb (13.0-17.0) g/dL Hct (38.0-50.0) % MCV (80.0-98.0) fL MCH (27.0-32.0) pg MCHC (31.0-37.0) g/dL RDW Std Deviation (28.0-62.0) fl RDW Coeff of [place]aton (11.0-15.0) % Plt Count (150-400) K/uL MPV (7.40-12.00) fL Neut % (Auto) (48.0-80.0) % Lymph % (Auto) (16.0-40.0) % [place] % (Auto) (0.0-15.0) % Eos % (Auto) (0.0-7.0) % Baso % (Auto) (0.0-1.5) % Neut # (Auto) (1.4-5.7) K/uL Lymph # (Auto) (0.6-2.4) K/uL [place] # (Auto) (0.0-0.8) K/uL Eos # (Auto) (0.0-0.7) K/uL Baso # (Auto) (0.0-0.1) K/uL Nucleated RBC % /100WBC Nucleated RBCs # K/uL INR Lactate 1.2 (0.20-2.00) mmol/L Sodium (136-148) mmol/L Potassium (3.5-5.1) mmol/L Chloride (98-107) mmol/L Carbon Dioxide (21.0-32.0) mmol/L BUN (7.0-18.0) mg/dL Creatinine (0.8-1.3) mg/dL Est Cr Clr Drug Dosing Estimated GFR (MDRD) ml/min Glucose (74-106) mg/dL Calcium (8.5-10.1) mg/dL Total Bilirubin (0.2-1.0) mg/dL AST (15-37) IU/L ALT (14-63) IU/L Alkaline Phosphatase (46-116) U/L Troponin I (0.000-0.056) ng/mL B-Natriuretic Peptide 994 H (<100) PG/ML Total Protein (6.4-8.2) g/dL Albumin (3.4-5.0) g/dL Globulin (2.0-3.5) g/dL Albumin/Globulin Ratio (1.3-2.8) Meds: Medications Generic Name Dose Route Start Last Admin Trade Name Freq PRN Reason Stop Dose Admin Levofloxacin/Dextrose 750 mg/ 150 mls @ 100 mls/hr 11/27/17 19:31 11/27/17 19 :56 Premix IV 11/27/17 21:00 100 mls/hr ONETIME ONE Administration Sodium Chloride 10 ml 11/27/17 19:31 11/27/17 19:56 Saline Flush FLUSH 10 ml ASDIRECTED PRN Administration Keep Vein Open Sodium Chloride 2.5 ml 11/27/17 19:31 11/27/17 19:58 Saline Flush FLUSH 2.5 ml ASDIRECTED PRN Administration Keep Vein Open Discontinued Medications Generic Name Dose Route Start Last Admin Trade Name Freq PRN Reason Stop Dose Admin Acetaminophen 1,000 mg 11/27/17 19:31 11/27/17 19:57 Tylenol Extra Strength PO 11/27/17 19:32 1,000 mg ONETIME ONE Administration Aspirin 324 mg 11/27/17 20:39 Aspirin PO 11/27/17 20:40 ONETIME ONE Furosemide 20 mg 11/27/17 20:39 Lasix IVPUSH 11/27/17 20:40 NOW ONE Nitroglycerin 1 gm 11/27/17 20:39 Nitro-Bid 2% TOP 11/27/17 20:40 ONETIME ONE Departure - Departure Time of Disposition: 20:49 Disposition: DC/Tfer to Acute Hospital 02 Condition: Good Clinical Impression: Dyspnea, Fever, Elevated troponin UTI (urinary tract infection) Qualifiers: Urinary tract infection type: acute cystitis Hematuria presence: without hematuria Qualified Code(s): N30.00 - Acute cystitis without hematuria - Discharge Information Forms: ED Department Discharge - My Orders Last 24 Hours: My Active Orders 11/27/17 19:30 Cardiac Monitoring [RC] . DIRECTED EKG Documentation Completion [RC] STAT Oxygen Therapy, ED [RC] ASDIRECTED Saline Lock Insert [OM.PC] Stat 11/27/17 19:31 Levofloxacin/Dextrose 5%-Water [Levaquin in D5W 750 MG/150 ML] 750 mg Premix Bag 1 bag IV ONETIME Sodium Chloride 0.9% [Saline Flush] 10 ml FLUSH ASDIRECTED PRN Sodium Chloride 0.9% [Saline Flush] 2.5 ml FLUSH ASDIRECTED PRN Blood Culture x2 Reflex Set [OM.PC] Stat 11/27/17 19:47 CULTURE BLOOD [BC] Stat 11/27/17 20:00 CULTURE BLOOD [BC] Stat 11/27/17 20:16 Chest 1V Frontal [CR] Stat 11/27/17 20:47 Enoxaparin [Lovenox] 70 mg SUBCUT ONETIME ONE - Assessment/Plan Last 24 Hours: My Active Orders 11/27/17 19:30 Cardiac Monitoring [RC] . DIRECTED EKG Documentation Completion [RC] STAT Oxygen Therapy, ED [RC] ASDIRECTED Saline Lock Insert [OM.PC] Stat 11/27/17 19:31 Levofloxacin/Dextrose 5%-Water [Levaquin in D5W 750 MG/150 ML] 750 mg Premix Bag 1 bag IV ONETIME Sodium Chloride 0.9% [Saline Flush] 10 ml FLUSH ASDIRECTED PRN Sodium Chloride 0.9% [Saline Flush] 2.5 ml FLUSH ASDIRECTED PRN Blood Culture x2 Reflex Set [OM.PC] Stat 11/27/17 19:47 CULTURE BLOOD [BC] Stat 11/27/17 20:00 CULTURE BLOOD [BC] Stat 11/27/17 20:16 Chest 1V Frontal [CR] Stat 11/27/17 20:47 Enoxaparin [Lovenox] 70 mg SUBCUT ONETIME ONE
[2017-11-27 20:25] LABS: CHLORIDE,CL 101 mmol/L (98-107); SODIUM,NA 137 mmol/L (136-148)
[2017-11-27] MEDS ORDERED: Aspirin 81 MG Tab.Chew PO ONE (20:39)
[2017-11-27] MEDS ORDERED: Nitroglycerin 2% Oint 1 GM UD Packet TOP ONE (20:39)
[2017-11-27] MEDS ORDERED: Furosemide 40 MG/4 ML VIAL IVPUSH ONE (20:39)
[2017-11-27] MEDS ORDERED: Enoxaparin 100 MG/1 ML Syringe SUBCUT ONE (20:47)
[2017-11-27 22:24] VITALS: BP 82/35
--- NOTE | 2017-11-28 11:27 | CR ---
EXAM DATE: 11/27/17 PATIENT'S AGE: 87 Patient: NAJMA JIMENEZ Facility: [place], [place] Site . Site : [id number] Study: XRay Chest [id number] 8:32:30 PM Ordering Physician: Edwin Kaur Final Report: INDICATION: Shortness of breath TECHNIQUE: Chest two views COMPARISON: 11/18/2017 FINDINGS: Cardiovascular and mediastinum: Heart size and vasculature are normal in caliber and appearance. Mediastinum is within normal limits. Lungs and pleural space: For inflation. Stable scarring involving both upper lobes right greater than left. No definitive infiltrates. No sign of pleural effusion. No pneumothorax. Bones and soft tissues: No significant findings. IMPRESSION: Stable scarring involving both upper lobes right greater than left. No significant change in appearance of the chest compared to 11/18/17. No definitive infiltrates. Hyperinflation. Dictated by Regan Mae MD @ 11/27/2017 8:37:12 PM Dictated by: Regan Mae MD @ 11/27/2017 20:37:17 (Electronic Signature) Report Signed by Proxy. [facility]
== END 2017-11-27 22:10 ==
LOC: MW.ED 19:20
DX: N30.00 Acute cystitis without hematuria (principal); R06.00 Dyspnea, unspecified; R79.89 Other specified abnormal findings of blood chemistry; Z88.1 Allergy status to other antibiotic agents; Z88.0 Allergy status to penicillin; Z79.899 Other long term (current) drug therapy
CPT/HCPCS: 36415; 71045; 80053; 83605; 83880; 84484; 85025; 85379; 85610; 87040; 93005; 96365; 96366; 96375; 99285; A9270; J1650; J1940; J1956